=== PATIENT | male | born 1950 | race African-American/Black ===

== ENCOUNTER 2018-02-23 05:01 | Inpatient (IN) | payer MEDICARE ==
[~2018-02-23] VITALS: Ht 175.3 cm; Wt 87.7 kg
[2018-02-23] VITALS (42 sets, daily range): BP systolic 140–182; BP diastolic 64–110
[2018-02-23 06:07] LABS: BASOPHILS % 1.1 % (0.0-2.0); EOSINOPHILS % 0.1 % (0.0-5.0); HEMOGLOBIN. 14.3 g/dL (14.0-18.0); LYMPHOCYTES % 8.8 % (20.0-50.0); MEAN CORPUSCULAR HEMOGLOBIN 28.6 pg (28.0-32.0); MEAN CORPUSCULAR VOLUME 87.8 fL (80.0-94.0); MEAN PLATELET VOLUME 8.8 fl (7.4-10.4); MONOCYTES % 2.5 % (2.0-8.0); NEUTROPHILS % 87.5 % (40.0-76.0); PLATELET 173 x1000/uL (130-400); RED BLOOD CELL COUNT 5.01 mill/uL (4.7-6.1); RED CELL DISTRIBUTION WIDTH 15.2 % (11.6-14.6)
[2018-02-23 06:10] LABS: CHLORIDE 108 mEq/L (98-107); PROTHROMBIN TIME 10.7 sec (9.4-11.6)
[2018-02-23 06:14] LABS: ETHANOL BLOOD < 10 mg/dL
[2018-02-23 06:59] LABS: CLARITY URINE CLEAR (CLEAR); COLOR URINE YELLOW (YELLOW); KETONES URINE NEGATIVE (NEGATIVE); LEUKOCYTE ESTERASE URINE NEGATIVE (NEGATIVE); NITRITE URINE NEGATIVE (NEGATIVE); OCCULT BLOOD URINE NEGATIVE (NEGATIVE); PH URINE 5.5 (4.5-8.0); PROTEIN URINE NEGATIVE (NEGATIVE); UROBILINOGEN URINE 0.2 E.U./dL (0.2-1.0)
[2018-02-23] MEDS ORDERED: ETOMIDATE 2MG/ML 10ML VIAL IV ONE (07:00)
[2018-02-23] MEDS ORDERED: SUCCINYLCHOLINE CHLORIDE 200MG/10ML VIAL IV ONE (07:00)
[2018-02-23] MEDS ORDERED: ONDANSETRON HCL 4MG/2ML VIAL IV ONE (07:00)
[2018-02-23] MEDS ORDERED: LORAZEPAM 2MG/ML CPJ IV ONE (07:15)
[2018-02-23] MEDS ORDERED: PROPOFOL 10MG/ML 100ML 100 ML IV SCH (07:15)
[2018-02-23 07:33] LABS: *COCAINE SCREEN URINE NEGATIVE (NEGATIVE)
[2018-02-23 07:35] LABS: *AMPHETAMINES SCREEN URINE NEGATIVE (NEGATIVE); CANNABINOID URINE SCREEN NEGATIVE (NEGATIVE); PHENCYCLIDINE URINE SCREEN NEGATIVE (NEGATIVE)
[2018-02-23 07:36] LABS: *BARBITURATES SCREEN URINE NEGATIVE (NEGATIVE); *BENZODIAZEPINES SCREEN URINE NEGATIVE (NEGATIVE); METHADONE URINE SCREEN NEGATIVE (NEGATIVE); OPIATES URINE SCREEN NEGATIVE (NEGATIVE)
[2018-02-23] MEDS ORDERED: PROPOFOL 10MG/ML 100ML 100 ML IV PRN (12:15)
[2018-02-23 13:03] LABS: BG CARBOXYHEMOGLOBIN 1.3 % (0.5-1.5); BG DEOXYHEMOGLOBIN 1.4 % (0.0-5.0); BG FRACTION INSPIRED OXYGEN 40; BG HCO3 ACT 22.9 mmol/L (22.0-26.0); BG METHEMOGLOBIN 0.1 % (0.0-1.5); BG OXYHEMOGLOBIN 97.2 % (94.0-97.0); BG PCO2 39.5 mmHg (35.0-45.0); BG PH 7.381 (7.350-7.450); BG PO2 130.5 mmHg (75.0-100.0); BG SAMPLE SITE RIGHT BRACHIAL; BG TIDAL VOLUME(mL) 500 mL; BG TOTAL HEMOGLOBIN 14.4 g/dL (12.0-18.0); BG VENT MODE VENT - A/C; BG VENT RATE 12 set
[2018-02-23] MEDS: LEVETIRACETAM 500MG PREMIX 100 ML IV SCH (14:25)
[2018-02-23] MEDS ORDERED: SODIUM CHLORIDE 0.9% 1,000 ML IV SCH (14:30)
[2018-02-23] MEDS ORDERED: NOREPINEPHRINE 16 MG in DEXT 5% WATER 484 ML IV PRN (14:30)
[2018-02-23] MEDS ORDERED: VANCOMYCIN 1 G PREMIX 200 ML IV SCH (14:30)
[2018-02-23] MEDS: PIPERACILLIN/TAZ 3.375G PREMIX 50 ML IV SCH ×2 (15:50→21:37)
[2018-02-23] MEDS: FOLIC ACID 1 MG, THIAMINE HCL 100 MG, MVI, ADULT NO.1 10 ML in DEXT 5%/0.45% NACL 1000M... IV SCH ×4 (15:50)
[2018-02-23 15:55] LABS: AMMONIA 51 uMol/L (<32)
[2018-02-23] MEDS: VANCOMYCIN 1 G PREMIX 200 ML IV SCH (16:57)
[2018-02-23] MEDS: PROPOFOL 10MG/ML 100ML 100 ML IV PRN (18:40)
[2018-02-24] VITALS (53 sets, daily range): BP systolic 146–192; BP diastolic 66–129
[2018-02-24] MEDS: PROPOFOL 10MG/ML 100ML 100 ML IV PRN ×2 (01:38→09:13)
[2018-02-24] MEDS: LEVETIRACETAM 500MG PREMIX 100 ML IV SCH ×2 (01:40→13:43)
[2018-02-24] MEDS ORDERED: SODIUM CHLORIDE 0.9% 1,000 ML IV SCH ×2 (02:05→02:16)
[2018-02-24] MEDS: VANCOMYCIN 1 G PREMIX 200 ML IV SCH ×2 (02:37→16:17)
[2018-02-24] MEDS: SODIUM CHLORIDE 0.9% 1,000 ML IV SCH (02:38)
[2018-02-24] MEDS: PIPERACILLIN/TAZ 3.375G PREMIX 50 ML IV SCH ×3 (05:00→22:12)
[2018-02-24 08:36] LABS: BG BASE EXCESS 0.8 mmol/L (-2.0-2.0); BG CARBOXYHEMOGLOBIN 0.9 % (0.5-1.5); BG DEOXYHEMOGLOBIN 1.6 % (0.0-5.0); BG FRACTION INSPIRED OXYGEN 40; BG HCO3 ACT 25.1 mmol/L (22.0-26.0); BG METHEMOGLOBIN 0.3 % (0.0-1.5); BG OXYGEN SATURATION 98.4 % (92.0-98.5); BG OXYHEMOGLOBIN 97.2 % (94.0-97.0); BG PCO2 39.3 mmHg (35.0-45.0); BG PH 7.423 (7.350-7.450); BG PO2 114.4 mmHg (75.0-100.0); BG SAMPLE SITE RIGHT RADIAL; BG TIDAL VOLUME(mL) 500 mL; BG TOTAL HEMOGLOBIN 14.3 g/dL (12.0-18.0); BG VENT MODE VENT - A/C; BG VENT RATE 12 set
[2018-02-24] MEDS: PANTOPRAZOLE SODIUM 40 MG/VIAL IV SCH (09:12)
[2018-02-24] MEDS: ASPIRIN 325MG TABLET PO SCH (09:18)
[2018-02-24 12:31] LABS: BASOPHILS % 0.7 % (0.0-2.0); EOSINOPHILS % 0.3 % (0.0-5.0); HEMATOCRIT. 41.2 % (42.0-52.0); HEMOGLOBIN. 13.4 g/dL (14.0-18.0); MEAN CORPUSCULAR HEMOGLOBIN 28.4 pg (28.0-32.0); MEAN CORPUSCULAR VOLUME 86.8 fL (80.0-94.0); MEAN PLATELET VOLUME 8.8 fl (7.4-10.4); MONOCYTES % 7.6 % (2.0-8.0); NEUTROPHILS % 74.4 % (40.0-76.0); PLATELET 166 x1000/uL (130-400); RED BLOOD CELL COUNT 4.74 mill/uL (4.7-6.1); RED CELL DISTRIBUTION WIDTH 15.2 % (11.6-14.6)
[2018-02-24 12:43] LABS: CHLORIDE 110 mEq/L (98-107)
[2018-02-24] MEDS: FOLIC ACID 1 MG, THIAMINE HCL 100 MG, MVI, ADULT NO.1 10 ML in DEXT 5%/0.45% NACL 1000M... IV SCH ×4 (16:16)
[2018-02-25] VITALS (40 sets, daily range): BP systolic 132–192; BP diastolic 74–99
[2018-02-25] MEDS: VANCOMYCIN 1 G PREMIX 200 ML IV SCH ×2 (01:35→15:56)
[2018-02-25] MEDS: LEVETIRACETAM 500MG PREMIX 100 ML IV SCH ×2 (02:43→15:55)
[2018-02-25] MEDS: PIPERACILLIN/TAZ 3.375G PREMIX 50 ML IV SCH ×3 (05:36→21:41)
[2018-02-25] MEDS: SODIUM CHLORIDE 0.9% 1,000 ML IV SCH ×2 (05:37→21:06)
[2018-02-25 05:41] LABS: BASOPHILS % 0.2 % (0.0-2.0); EOSINOPHILS % 0.4 % (0.0-5.0); HEMATOCRIT 39.6 % (42.0-52.0); HEMATOCRIT. 39.6 % (42.0-52.0); HEMOGLOBIN 13.2 g/dL (14.0-18.0); HEMOGLOBIN. 13.2 g/dL (14.0-18.0); LYMPHOCYTES % 18.5 % (20.0-50.0); MEAN CORPUSCULAR HEMOGLOBIN 29.1 pg (28.0-32.0); MEAN CORPUSCULAR VOLUME 87.3 fL (80.0-94.0); MEAN PLATELET VOLUME 8.9 fl (7.4-10.4); MONOCYTES % 9.3 % (2.0-8.0); NEUTROPHILS % 71.6 % (40.0-76.0); PLATELET 165 x1000/uL (130-400); RED BLOOD CELL COUNT 4.54 mill/uL (4.7-6.1); RED CELL DISTRIBUTION WIDTH 14.9 % (11.6-14.6)
[2018-02-25 06:50] LABS: CHLORIDE 110 mEq/L (98-107)
[2018-02-25] MEDS: PANTOPRAZOLE SODIUM 40 MG/VIAL IV SCH (09:39)
[2018-02-25] MEDS: ASPIRIN 325MG TABLET PO SCH (09:39)
[2018-02-25 12:46] LABS: BG BASE EXCESS 0.8 mmol/L (-2.0-2.0); BG CARBOXYHEMOGLOBIN 0.7 % (0.5-1.5); BG DEOXYHEMOGLOBIN 1.3 % (0.0-5.0); BG FRACTION INSPIRED OXYGEN 40; BG HCO3 ACT 24.3 mmol/L (22.0-26.0); BG METHEMOGLOBIN 0.2 % (0.0-1.5); BG OXYGEN SATURATION 98.7 % (92.0-98.5); BG OXYHEMOGLOBIN 97.8 % (94.0-97.0); BG PCO2 35.2 mmHg (35.0-45.0); BG PH 7.457 (7.350-7.450); BG PRESSURE SUPPORT 12; BG SAMPLE SITE RIGHT RADIAL; BG TIDAL VOLUME(mL) 500 mL; BG TOTAL HEMOGLOBIN 13.5 g/dL (12.0-18.0); BG VENT MODE VENT - SIMV; BG VENT RATE 8 set
[2018-02-25] MEDS: FOLIC ACID 1 MG, THIAMINE HCL 100 MG, MVI, ADULT NO.1 10 ML in DEXT 5%/0.45% NACL 1000M... IV SCH ×4 (15:56)
[2018-02-25] MEDS: AMLODIPINE 10MG TABLET PO SCH (16:00)
[2018-02-25] MEDS: LORAZEPAM 2MG/ML CPJ IV PRN (21:06)
[2018-02-25] MEDS: HYDRALAZINE HCL 25MG TABLET PO SCH (21:41)
[2018-02-26] VITALS (42 sets, daily range): BP systolic 123–183; BP diastolic 64–92
[2018-02-26] MEDS: LEVETIRACETAM 500MG PREMIX 100 ML IV SCH ×2 (02:39→14:06)
[2018-02-26] MEDS: VANCOMYCIN 1 G PREMIX 200 ML IV SCH (03:22)
[2018-02-26] MEDS: LORAZEPAM 2MG/ML CPJ IV PRN (04:06)
[2018-02-26 05:42] LABS: HEMATOCRIT 39.2 % (42.0-52.0); HEMOGLOBIN 12.9 g/dL (14.0-18.0); MEAN CORPUSCULAR HEMOGLOBIN 28.6 pg (28.0-32.0); MEAN CORPUSCULAR VOLUME 86.6 fL (80.0-94.0); PLATELET 157 x1000/uL (130-400); RED BLOOD CELL COUNT 4.53 mill/uL (4.7-6.1); RED CELL DISTRIBUTION WIDTH 14.8 % (11.6-14.6)
[2018-02-26 05:55] LABS: CHLORIDE 111 mEq/L (98-107)
[2018-02-26] MEDS: PIPERACILLIN/TAZ 3.375G PREMIX 50 ML IV SCH ×3 (05:55→21:25)
[2018-02-26] MEDS: HYDRALAZINE HCL 25MG TABLET PO SCH ×3 (05:55→21:25)
[2018-02-26] MEDS ORDERED: POTASSIUM CHLORIDE 20MEQ TABLET SR PO SCH (07:30)
[2018-02-26] MEDS: SODIUM CHLORIDE 0.9% 1,000 ML IV SCH (07:52)
[2018-02-26] MEDS: PANTOPRAZOLE SODIUM 40 MG/VIAL IV SCH (09:07)
[2018-02-26] MEDS: ASPIRIN 325MG TABLET PO SCH (09:07)
[2018-02-26] MEDS: AMLODIPINE 10MG TABLET PO SCH (09:08)
[2018-02-26 09:59] LABS: BG BASE EXCESS -0.6 mmol/L (-2.0-2.0); BG CARBOXYHEMOGLOBIN 0.6 % (0.5-1.5); BG DEOXYHEMOGLOBIN 1.8 % (0.0-5.0); BG FRACTION INSPIRED OXYGEN 40; BG HCO3 ACT 22.4 mmol/L (22.0-26.0); BG METHEMOGLOBIN 0.3 % (0.0-1.5); BG OXYGEN SATURATION 98.2 % (92.0-98.5); BG OXYHEMOGLOBIN 97.3 % (94.0-97.0); BG PCO2 31.9 mmHg (35.0-45.0); BG PH 7.464 (7.350-7.450); BG PRESSURE SUPPORT 12; BG SAMPLE SITE RIGHT BRACHIAL; BG TIDAL VOLUME(mL) 500 mL; BG TOTAL HEMOGLOBIN 13.3 g/dL (12.0-18.0); BG VENT MODE VENT - SIMV; BG VENT RATE 8 set
[2018-02-26] MEDS: FOLIC ACID 1 MG, THIAMINE HCL 100 MG, MVI, ADULT NO.1 10 ML in DEXT 5%/0.45% NACL 1000M... IV SCH ×4 (20:14)
[2018-02-27] VITALS (48 sets, daily range): BP systolic 122–180; BP diastolic 65–106
[2018-02-27] MEDS: LEVETIRACETAM 500MG PREMIX 100 ML IV SCH ×2 (01:06→14:54)
[2018-02-27] MEDS: HYDRALAZINE HCL 25MG TABLET PO SCH ×3 (05:27→21:44)
[2018-02-27] MEDS: PIPERACILLIN/TAZ 3.375G PREMIX 50 ML IV SCH ×3 (05:27→21:45)
[2018-02-27] MEDS: SODIUM CHLORIDE 0.9% 1,000 ML IV SCH (07:40)
[2018-02-27] MEDS: ASPIRIN 325MG TABLET PO SCH (08:44)
[2018-02-27] MEDS: PANTOPRAZOLE SODIUM 40 MG/VIAL IV SCH (08:45)
[2018-02-27] MEDS: AMLODIPINE 10MG TABLET PO SCH (08:45)
[2018-02-27 10:31] LABS: BASOPHILS % 1.1 % (0.0-2.0); EOSINOPHILS % 0.8 % (0.0-5.0); HEMOGLOBIN. 12.8 g/dL (14.0-18.0); LYMPHOCYTES % 14.6 % (20.0-50.0); MEAN CORPUSCULAR HEMOGLOBIN 28.4 pg (28.0-32.0); MEAN CORPUSCULAR VOLUME 86.6 fL (80.0-94.0); MEAN PLATELET VOLUME 8.4 fl (7.4-10.4); MONOCYTES % 8.7 % (2.0-8.0); NEUTROPHILS % 74.8 % (40.0-76.0); PLATELET 162 x1000/uL (130-400); RED BLOOD CELL COUNT 4.51 mill/uL (4.7-6.1); RED CELL DISTRIBUTION WIDTH 15.1 % (11.6-14.6)
[2018-02-27 11:15] LABS: BG BASE EXCESS -0.7 mmol/L (-2.0-2.0); BG CARBOXYHEMOGLOBIN 0.4 % (0.5-1.5); BG DEOXYHEMOGLOBIN 1.4 % (0.0-5.0); BG FRACTION INSPIRED OXYGEN 50; BG HCO3 ACT 22.8 mmol/L (22.0-26.0); BG METHEMOGLOBIN 0.3 % (0.0-1.5); BG OXYHEMOGLOBIN 97.9 % (94.0-97.0); BG PCO2 34.1 mmHg (35.0-45.0); BG PH 7.443 (7.350-7.450); BG PO2 131.2 mmHg (75.0-100.0); BG PRESSURE SUPPORT 8; BG SAMPLE SITE RIGHT RADIAL; BG TOTAL HEMOGLOBIN 13.8 g/dL (12.0-18.0); BG VENT MODE VENT - CPAP
[2018-02-27 11:34] LABS: CHLORIDE 113 mEq/L (98-107)
[2018-02-27 11:39] LABS: PHOSPHORUS 3.7 mg/dL (2.5-4.9)
[2018-02-27] MEDS ORDERED: RACEPINEPHRINE 2.25% 0.5ML NEB VIAL HHN PRN (12:15)
[2018-02-27] MEDS: FOLIC ACID 1 MG, THIAMINE HCL 100 MG, MVI, ADULT NO.1 10 ML in DEXT 5%/0.45% NACL 1000M... IV SCH ×4 (14:54)
[2018-02-27] MEDS: IPRATROPIUM/ALBUTEROL 0.5-3(2.5)MG/3ML NEB HHN PRN (15:57)
[2018-02-27] MEDS ORDERED: BISACODYL 10MG SUPP PR PRN ×2 (16:15→19:00)
[2018-02-27] MEDS: DOCUSATE SODIUM SUGAR FREE 100MG/10ML UDC NG SCH (16:28)
[2018-02-27] MEDS ORDERED: BISACODYL 5MG TABLET PO PRN (19:00)
[2018-02-27] MEDS ORDERED: MAGNESIUM HYDROXIDE 400MG/5ML 30ML UDC PO PRN (19:00)
[2018-02-27] MEDS: IPRATROPIUM/ALBUTEROL 0.5-3(2.5)MG/3ML NEB HHN SCH (20:47)
[2018-02-28] VITALS (34 sets, daily range): BP systolic 104–175; BP diastolic 58–84
[2018-02-28] MEDS: IPRATROPIUM/ALBUTEROL 0.5-3(2.5)MG/3ML NEB HHN SCH ×4 (01:50→20:45)
[2018-02-28] MEDS: LEVETIRACETAM 500MG PREMIX 100 ML IV SCH ×2 (02:49→13:20)
[2018-02-28] MEDS: PIPERACILLIN/TAZ 3.375G PREMIX 50 ML IV SCH ×3 (05:33→22:07)
[2018-02-28] MEDS: HYDRALAZINE HCL 25MG TABLET PO SCH ×3 (05:33→22:00)
[2018-02-28] MEDS: ASPIRIN 325MG TABLET PO SCH (08:19)
[2018-02-28] MEDS: PANTOPRAZOLE SODIUM 40 MG/VIAL IV SCH (08:19)
[2018-02-28] MEDS: AMLODIPINE 10MG TABLET PO SCH (08:20)
[2018-02-28] MEDS: DOCUSATE SODIUM SUGAR FREE 100MG/10ML UDC NG SCH (08:21)
[2018-02-28 08:34] LABS: BG BASE EXCESS 2.4 mmol/L (-2.0-2.0); BG CARBOXYHEMOGLOBIN 0.6 % (0.5-1.5); BG DEOXYHEMOGLOBIN 2.1 % (0.0-5.0); BG FRACTION INSPIRED OXYGEN 28; BG HCO3 ACT 26.7 mmol/L (22.0-26.0); BG METHEMOGLOBIN 0.2 % (0.0-1.5); BG OXYGEN SATURATION 97.9 % (92.0-98.5); BG OXYHEMOGLOBIN 97.1 % (94.0-97.0); BG PCO2 40.5 mmHg (35.0-45.0); BG PH 7.437 (7.350-7.450); BG PO2 105.1 mmHg (75.0-100.0); BG SAMPLE SITE RIGHT BRACHIAL; BG TOTAL HEMOGLOBIN 13.2 g/dL (12.0-18.0); BG VENT MODE NASAL CANNULA
[2018-02-28 09:41] LABS: CHLORIDE 115 mEq/L (98-107)
[2018-02-28 09:46] LABS: BASOPHILS % 0.4 % (0.0-2.0); EOSINOPHILS % 0.5 % (0.0-5.0); HEMATOCRIT. 39.4 % (42.0-52.0); HEMOGLOBIN. 12.8 g/dL (14.0-18.0); LYMPHOCYTES % 13.5 % (20.0-50.0); MEAN CORPUSCULAR HEMOGLOBIN 28.2 pg (28.0-32.0); MEAN CORPUSCULAR VOLUME 86.9 fL (80.0-94.0); MEAN PLATELET VOLUME 8.8 fl (7.4-10.4); MONOCYTES % 7.8 % (2.0-8.0); NEUTROPHILS % 77.8 % (40.0-76.0); PLATELET 159 x1000/uL (130-400); RED BLOOD CELL COUNT 4.54 mill/uL (4.7-6.1); RED CELL DISTRIBUTION WIDTH 15.3 % (11.6-14.6)
[2018-02-28] MEDS: METHYLPREDNISOLONE SOD SUCC 40 MG/ML VIAL IV SCH ×2 (12:49→17:16)
[2018-02-28] MEDS: BUDESONIDE 0.5MG/2ML NEB HHN SCH ×2 (14:57→20:45)
[2018-03-01] VITALS (24 sets, daily range): BP systolic 124–167; BP diastolic 60–95
[2018-03-01] MEDS: METHYLPREDNISOLONE SOD SUCC 40 MG/ML VIAL IV SCH ×2 (01:38→17:36)
[2018-03-01] MEDS: LEVETIRACETAM 500MG PREMIX 100 ML IV SCH ×2 (01:38→14:12)
[2018-03-01] MEDS: IPRATROPIUM/ALBUTEROL 0.5-3(2.5)MG/3ML NEB HHN SCH ×4 (01:52→20:20)
[2018-03-01] MEDS: HYDRALAZINE HCL 25MG TABLET PO SCH ×3 (06:01→21:55)
[2018-03-01] MEDS: PIPERACILLIN/TAZ 3.375G PREMIX 50 ML IV SCH ×3 (06:01→21:55)
[2018-03-01] MEDS: BUDESONIDE 0.5MG/2ML NEB HHN SCH ×2 (08:04→20:20)
[2018-03-01] MEDS: DOCUSATE SODIUM SUGAR FREE 100MG/10ML UDC NG SCH (08:08)
[2018-03-01] MEDS: PANTOPRAZOLE SODIUM 40 MG/VIAL IV SCH (08:38)
[2018-03-01] MEDS: ASPIRIN 325MG TABLET PO SCH (08:39)
[2018-03-01] MEDS: AMLODIPINE 10MG TABLET PO SCH (08:39)
[2018-03-01 09:09] LABS: HEMATOCRIT. 38.1 % (42.0-52.0); HEMOGLOBIN. 12.2 g/dL (14.0-18.0); MEAN CORPUSCULAR VOLUME 87.3 fL (80.0-94.0); MEAN PLATELET VOLUME 8.9 fl (7.4-10.4); PLATELET 194 x1000/uL (130-400); RED BLOOD CELL COUNT 4.37 mill/uL (4.7-6.1)
[2018-03-01 09:29] LABS: CHLORIDE 116 mEq/L (98-107)
[2018-03-01] MEDS ORDERED: METHYLPREDNISOLONE SOD SUCC 40 MG/ML VIAL IV SCH (09:30)
[2018-03-01 09:35] LABS: PHOSPHORUS 2.9 mg/dL (2.5-4.9)
[2018-03-01 09:59] LABS: PLATELET ESTIMATE NORMAL
[2018-03-02] VITALS: BP 117/62
[2018-03-02] MEDS: IPRATROPIUM/ALBUTEROL 0.5-3(2.5)MG/3ML NEB HHN SCH ×4 (01:55→21:52)
[2018-03-02] MEDS: LEVETIRACETAM 500MG PREMIX 100 ML IV SCH ×2 (02:30→14:55)
[2018-03-02 04:00] VITALS: BP 123/58
[2018-03-02] MEDS: HYDRALAZINE HCL 25MG TABLET PO SCH ×3 (05:18→22:55)
[2018-03-02] MEDS: PIPERACILLIN/TAZ 3.375G PREMIX 50 ML IV SCH ×2 (05:18→15:39)
[2018-03-02 08:06] VITALS: BP 134/62
[2018-03-02] MEDS: ASPIRIN 325MG TABLET PO SCH (08:32)
[2018-03-02] MEDS: METHYLPREDNISOLONE SOD SUCC 40 MG/ML VIAL IV SCH ×2 (08:32→17:33)
[2018-03-02] MEDS: DOCUSATE SODIUM SUGAR FREE 100MG/10ML UDC NG SCH (08:32)
[2018-03-02] MEDS: PANTOPRAZOLE SODIUM 40 MG/VIAL IV SCH (08:33)
[2018-03-02] MEDS: AMLODIPINE 10MG TABLET PO SCH (08:33)
[2018-03-02] MEDS: BUDESONIDE 0.5MG/2ML NEB HHN SCH ×2 (09:15→21:52)
[2018-03-02 12:50] VITALS: BP 141/63
[2018-03-02] MEDS ORDERED: MIDAZOLAM HCL 5 MG/5 ML VIAL IV ONE (13:26)
[2018-03-02] MEDS ORDERED: MIDAZOLAM HCL 5 MG/5 ML VIAL ONE (13:31)
[2018-03-02] MEDS ORDERED: FENTANYL CITRATE/PF 50MCG/ML 2ML VIAL ONE (13:31)
[2018-03-02 16:42] VITALS: BP 155/73
[2018-03-02] MEDS: IPRATROPIUM/ALBUTEROL 0.5-3(2.5)MG/3ML NEB HHN PRN (16:59)
[2018-03-02 20:00] VITALS: BP 150/74
[2018-03-03] VITALS: BP 134/68
[2018-03-03] MEDS: LEVETIRACETAM 500MG PREMIX 100 ML IV SCH (02:34)
[2018-03-03] MEDS: IPRATROPIUM/ALBUTEROL 0.5-3(2.5)MG/3ML NEB HHN SCH ×3 (02:48→20:34)
[2018-03-03 04:00] VITALS: BP 134/65
[2018-03-03] MEDS: HYDRALAZINE HCL 25MG TABLET PO SCH ×3 (07:06→21:10)
[2018-03-03 08:23] VITALS: BP 107/74
[2018-03-03] MEDS: BUDESONIDE 0.5MG/2ML NEB HHN SCH (08:39)
[2018-03-03] MEDS: AMLODIPINE 10MG TABLET PO SCH (09:00)
[2018-03-03] MEDS: ASPIRIN 325MG TABLET PO SCH (09:00)
[2018-03-03] MEDS: DOCUSATE SODIUM SUGAR FREE 100MG/10ML UDC NG SCH (09:42)
[2018-03-03] MEDS: PANTOPRAZOLE SODIUM 40 MG/VIAL IV SCH (09:43)
[2018-03-03] MEDS: METHYLPREDNISOLONE SOD SUCC 40 MG/ML VIAL IV SCH ×2 (09:43→17:13)
[2018-03-03 11:30] VITALS: BP 147/69
[2018-03-03 16:00] VITALS: BP 128/51
[2018-03-03 20:00] VITALS: BP 154/65
[2018-03-04] VITALS: BP 150/68
[2018-03-04] MEDS: IPRATROPIUM/ALBUTEROL 0.5-3(2.5)MG/3ML NEB HHN SCH ×3 (00:28→20:26)
[2018-03-04 04:00] VITALS: BP 162/83
[2018-03-04] MEDS: HYDRALAZINE HCL 25MG TABLET PO SCH ×3 (05:08→21:07)
[2018-03-04 08:00] VITALS: BP 135/82
[2018-03-04] MEDS: ASPIRIN 325MG TABLET PO SCH (09:59)
[2018-03-04] MEDS: METHYLPREDNISOLONE SOD SUCC 40 MG/ML VIAL IV SCH ×2 (09:59→16:33)
[2018-03-04] MEDS: DOCUSATE SODIUM SUGAR FREE 100MG/10ML UDC NG SCH (09:59)
[2018-03-04] MEDS: AMLODIPINE 10MG TABLET PO SCH (09:59)
[2018-03-04 12:00] VITALS: BP 158/77
[2018-03-04 16:00] VITALS: BP 132/66
[2018-03-04] MEDS ORDERED: HYDR-4134 PO (19:26)
[2018-03-04] MEDS ORDERED: ASPI-986 PO (19:26)
[2018-03-04] MEDS ORDERED: AMLO10TA80 PO (19:26)
[2018-03-04] MEDS ORDERED: IPRA3AMP9 HHN (19:26)
[2018-03-04 20:00] VITALS: BP 148/70
[2018-03-04 20:25] LABS: BASOPHILS % 0.3 % (0.0-2.0); HEMATOCRIT. 39.9 % (42.0-52.0); HEMOGLOBIN. 12.9 g/dL (14.0-18.0); LYMPHOCYTES % 7.7 % (20.0-50.0); MEAN CORPUSCULAR HEMOGLOBIN 28.3 pg (28.0-32.0); MEAN CORPUSCULAR VOLUME 87.5 fL (80.0-94.0); MEAN PLATELET VOLUME 9.2 fl (7.4-10.4); MONOCYTES % 2.5 % (2.0-8.0); NEUTROPHILS % 89.5 % (40.0-76.0); PLATELET 252 x1000/uL (130-400); RED BLOOD CELL COUNT 4.56 mill/uL (4.7-6.1); RED CELL DISTRIBUTION WIDTH 14.7 % (11.6-14.6)
[2018-03-04 20:29] LABS: CHLORIDE 113 mEq/L (98-107)
[2018-03-05] VITALS: BP 159/68
[2018-03-05] MEDS: IPRATROPIUM/ALBUTEROL 0.5-3(2.5)MG/3ML NEB HHN SCH ×4 (02:13→19:59)
[2018-03-05 04:00] VITALS: BP 144/69
[2018-03-05] MEDS: HYDRALAZINE HCL 25MG TABLET PO SCH ×2 (05:15→14:29)
[2018-03-05 06:51] LABS: BASOPHILS % 0.1 % (0.0-2.0); EOSINOPHILS % 0.1 % (0.0-5.0); HEMATOCRIT. 38.6 % (42.0-52.0); HEMOGLOBIN. 12.9 g/dL (14.0-18.0); LYMPHOCYTES % 16.4 % (20.0-50.0); MONOCYTES % 8.9 % (2.0-8.0); NEUTROPHILS % 74.5 % (40.0-76.0); PLATELET 247 x1000/uL (130-400); RED BLOOD CELL COUNT 4.44 mill/uL (4.7-6.1); RED CELL DISTRIBUTION WIDTH 14.6 % (11.6-14.6)
[2018-03-05 07:18] LABS: CHLORIDE 112 mEq/L (98-107)
[2018-03-05 08:00] VITALS: BP 148/72
[2018-03-05] MEDS: ASPIRIN 325MG TABLET PO SCH (08:45)
[2018-03-05] MEDS: METHYLPREDNISOLONE SOD SUCC 40 MG/ML VIAL IV SCH (08:45)
[2018-03-05] MEDS: DOCUSATE SODIUM SUGAR FREE 100MG/10ML UDC NG SCH (08:46)
[2018-03-05] MEDS: AMLODIPINE 10MG TABLET PO SCH (08:49)
[2018-03-05 12:00] VITALS: BP 145/68
[2018-03-05] MEDS ORDERED: ATOR10TA PO (12:38)
[2018-03-05] MEDS ORDERED: PREDNISONE 20MG TABLET PO SCH (12:45)
[2018-03-05 16:00] VITALS: BP 158/72
[2018-03-05] MEDS ORDERED: ATORVASTATIN CALCIUM 10MG TABLET PO SCH ×2 (21:00)
== END 2018-03-05 21:44 | DRG 207 ==
LOC: ER 05:01 → CVICU 08:47 → EDBEDREQ 08:51 → EDBEDREQTM 08:51 → ENRESERV 09:56 → 5WST 03-01 11:46
PROVIDERS: ADMIT Family Medicine; ATTEND Family Medicine
PROC: 5A1955Z Respiratory Ventilation, Greater than 96 Consecutive Hours (ICD-10-PCS; 2018-02-23)
PROC: 0BH17EZ Insertion of Endotracheal Airway into Trachea, Via Natural or Artificial Opening (ICD-10-PCS; 2018-02-23)
PROC: 0DH63UZ Insertion of Feeding Device into Stomach, Percutaneous Approach (ICD-10-PCS; principal; 2018-03-02 10:00)
DX: J96.00 Acute respiratory failure, unspecified whether with hypoxia or hypercapnia (principal); I63.9 Cerebral infarction, unspecified; E43 Unspecified severe protein-calorie malnutrition; G93.1 Anoxic brain damage, not elsewhere classified; R13.12 Dysphagia, oropharyngeal phase; G81.94 Hemiplegia, unspecified affecting left nondominant side; E87.0 Hyperosmolality and hypernatremia; R47.01 Aphasia; D64.9 Anemia, unspecified; E11.9 Type 2 diabetes mellitus without complications; D72.825 Bandemia; F10.10 Alcohol abuse, uncomplicated; Y90.9 Presence of alcohol in blood, level not specified; F17.210 Nicotine dependence, cigarettes, uncomplicated; I10 Essential (primary) hypertension; K25.9 Gastric ulcer, unspecified as acute or chronic, without hemorrhage or perforation; K29.70 Gastritis, unspecified, without bleeding; K44.9 Diaphragmatic hernia without obstruction or gangrene; K59.00 Constipation, unspecified; Z91.14 Patient's other noncompliance with medication regimen; Z68.28 Body mass index [BMI] 28.0-28.9, adult; Z79.899 Other long term (current) drug therapy
CPT/HCPCS: 31500; 36415; 36600; 70450; 70544; 70551; 70553; 71045; 80048; 80053; 80061; 80202; 80305; 81003; 82140; 82375; 82805; 82962; 83036; 83605; 83690; 83735; 84100; 84443; 84478; 84484; 85025; 85027; 85610; 87040; 87070; 92523; 92610; 93005; 93306; 93880; 93970; 94002; 94003; 94640; 96374; 96375; 97110; 97112; 97162; 97166; 97530; 99291; C9113; G0482; J0330; J1953; J2060; J2250; J2405; J2543; J2704; J2920; J3010; J3370; J3411; J3490; J7030; J7050; J7512; J7620; J7626

== ENCOUNTER 2018-03-18 09:11 | Inpatient (IN) | payer MEDICARE ==
[~2018-03-18] VITALS: Ht 175.3 cm; Wt 80.7 kg
[2018-03-18] VITALS (35 sets, daily range): BP systolic 95–132; BP diastolic 67–84
[~2018-03-18 09:11] MED LIST: AMLO10TA80 PO; ASPI-986 PO; ATOR10TA PO; BISA-81 GT; DOCU-138 GT; HYDR-4134 PO; IPRA3AMP9 HHN; KEPP500 PO; LEVO500T2 PO; TAMS-11 PO
[2018-03-18] MEDS ORDERED: ETOMIDATE 2MG/ML 10ML VIAL IV ONE ×3 (09:30→16:01)
[2018-03-18] MEDS ORDERED: PIPERACILLIN/TAZ 3.375G PREMIX 50 ML IV ONE (09:30)
[2018-03-18] MEDS ORDERED: VANCOMYCIN 1 G PREMIX 200 ML IV ONE (09:30)
[2018-03-18] MEDS ORDERED: VECURONIUM BROMIDE 10 MG/VIAL IV ONE ×3 (09:30→16:01)
[2018-03-18] MEDS ORDERED: PROPOFOL 10MG/ML 100ML 100 ML IV ONE (09:30)
[2018-03-18] MEDS ORDERED: SODIUM CHLORIDE 0.9% 1000ML BAG (SEPSIS BOLUS) IV ONE (09:30)
[2018-03-18] MEDS ORDERED: ACETAMINOPHEN 650MG SUPP PR ONE (09:30)
[2018-03-18 09:51] LABS: BG CARBOXYHEMOGLOBIN 0.4 % (0.5-1.5); BG DEOXYHEMOGLOBIN 8.9 % (0.0-5.0); BG HCO3 ACT 26.7 mmol/L (22.0-26.0); BG METHEMOGLOBIN 0.3 % (0.0-1.5); BG OXYHEMOGLOBIN 90.4 % (94.0-97.0); BG PCO2 51.9 mmHg (35.0-45.0); BG PO2 67.3 mmHg (75.0-100.0); BG SAMPLE SITE RIGHT RADIAL; BG TIDAL VOLUME(mL) 500 mL; BG TOTAL HEMOGLOBIN 13.9 g/dL (12.0-18.0); BG VENT MODE VENT - A/C; BG VENT RATE 12 set
[2018-03-18 10:22] LABS: BASOPHILS % 0.3 % (0.0-2.0); EOSINOPHILS % 0.2 % (0.0-5.0); HEMATOCRIT. 40.9 % (42.0-52.0); HEMOGLOBIN. 13.3 g/dL (14.0-18.0); LYMPHOCYTES % 12.9 % (20.0-50.0); MEAN CORPUSCULAR HEMOGLOBIN 28.2 pg (28.0-32.0); MEAN CORPUSCULAR VOLUME 87.1 fL (80.0-94.0); MEAN PLATELET VOLUME 8.7 fl (7.4-10.4); MONOCYTES % 8.6 % (2.0-8.0); PLATELET 289 x1000/uL (130-400); RED CELL DISTRIBUTION WIDTH 15.5 % (11.6-14.6)
[2018-03-18 10:26] LABS: INR 1.3
[2018-03-18 10:32] LABS: CHLORIDE 124 mEq/L (98-107)
[2018-03-18 10:37] LABS: CLARITY URINE CLOUDY (CLEAR); COLOR URINE YELLOW (YELLOW); KETONES URINE NEGATIVE (NEGATIVE); LEUKOCYTE ESTERASE URINE 1+ (NEGATIVE); NITRITE URINE NEGATIVE (NEGATIVE); OCCULT BLOOD URINE 2+ (NEGATIVE); PROTEIN URINE 1+ (NEGATIVE); SPECIFIC GRAVITY URINE 1.019 (1.005-1.030); UROBILINOGEN URINE 0.2 E.U./dL (0.2-1.0)
[2018-03-18 11:31] LABS: CREATINE KINASE 1259 IU/L (39-308)
[2018-03-18 11:43] LABS: D-DIMER > 35.20 mg/L FEU (<0.50)
[2018-03-18] MEDS ORDERED: NORMAL SALINE 0.9% 10 ML SYR ONE (16:01)
[2018-03-18] MEDS ORDERED: ALBUTEROL (0.5%) 2.5MG/0.5ML NEB HHN PRN (16:15)
[2018-03-18] MEDS ORDERED: DEXT 5%/0.45% NACL 500ML 500 ML IV ONE (16:15)
[2018-03-18] MEDS ORDERED: PIPERACILLIN/TAZ 3.375G PREMIX 50 ML IV SCH ×2 (16:15→18:30)
[2018-03-18 16:47] LABS: BASOPHILS % 0.5 % (0.0-2.0); EOSINOPHILS % 0.2 % (0.0-5.0); HEMATOCRIT. 36.1 % (42.0-52.0); HEMOGLOBIN. 11.4 g/dL (14.0-18.0); LYMPHOCYTES % 9.3 % (20.0-50.0); MEAN CORPUSCULAR VOLUME 88.9 fL (80.0-94.0); MEAN PLATELET VOLUME 8.5 fl (7.4-10.4); MONOCYTES % 6.7 % (2.0-8.0); NEUTROPHILS % 83.3 % (40.0-76.0); PLATELET 239 x1000/uL (130-400); RED BLOOD CELL COUNT 4.06 mill/uL (4.7-6.1); RED CELL DISTRIBUTION WIDTH 15.3 % (11.6-14.6)
[2018-03-18] MEDS ORDERED: ONDANSETRON HCL 4MG/2ML VIAL IV PRN (17:00)
[2018-03-18] MEDS ORDERED: NA PHOS,M-B/NA PHOS,DI-BA ENEMA 118ML PR PRN (17:00)
[2018-03-18] MEDS ORDERED: GUAIFENESIN 200MG/10ML SUGAR FREE UDC PO PRN (17:00)
[2018-03-18] MEDS ORDERED: HYDROCODONE/ACETAMINOPHEN 5/325MG TABLET PO PRN (17:00)
[2018-03-18] MEDS ORDERED: ACETAMINOPHEN 650MG SUPP PR PRN (17:00)
[2018-03-18] MEDS ORDERED: IPRATROPIUM/ALBUTEROL 0.5-3(2.5)MG/3ML NEB INH PRN (17:00)
[2018-03-18] MEDS ORDERED: ACETAMINOPHEN 325MG TABLET PO PRN (17:00)
[2018-03-18] MEDS ORDERED: VANCOMYCIN 1 G PREMIX 200 ML IV SCH (17:00)
[2018-03-18] MEDS ORDERED: HYDROCODONE/ACETAMINOPHEN 10/325MG TABLET PO PRN (17:00)
[2018-03-18] MEDS ORDERED: DIPHENHYDRAMINE 50MG/ML VIAL IV PRN (17:00)
[2018-03-18] MEDS ORDERED: DOCUSATE SODIUM 100MG CAPSULE PO PRN (17:00)
[2018-03-18 17:21] LABS: BG CARBOXYHEMOGLOBIN 0.3 % (0.5-1.5); BG DEOXYHEMOGLOBIN 0.8 % (0.0-5.0); BG HCO3 ACT 22.9 mmol/L (22.0-26.0); BG METHEMOGLOBIN 0.1 % (0.0-1.5); BG OXYGEN SATURATION 99.2 % (92.0-98.5); BG OXYHEMOGLOBIN 98.8 % (94.0-97.0); BG PCO2 39.7 mmHg (35.0-45.0); BG PH 7.379 (7.350-7.450); BG PO2 258.6 mmHg (75.0-100.0); BG SAMPLE SITE RIGHT RADIAL; BG TIDAL VOLUME(mL) 500 mL; BG TOTAL HEMOGLOBIN 12.3 g/dL (12.0-18.0); BG VENT MODE VENT - A/C; BG VENT RATE 18 set
[2018-03-18] MEDS: PROPOFOL 10MG/ML 100ML 100 ML IV PRN (18:27)
[2018-03-18] MEDS: PIPERACILLIN/TAZ 3.375G PREMIX 50 ML IV SCH (18:28)
[2018-03-18] MEDS ORDERED: SODIUM POLYSTYRENE SULFONATE 15 G/60 ML BOT PO NR (18:45)
[2018-03-18] MEDS: ENOXAPARIN 40MG/0.4ML SYR SUBCUT SCH (19:56)
[2018-03-18] MEDS ORDERED: VANCOMYCIN 1500MG in DEXTROSE 5% WATER 250ML IV NR (20:30)
[2018-03-18] MEDS: IPRATROPIUM/ALBUTEROL 0.5-3(2.5)MG/3ML NEB INH SCH (20:31)
[2018-03-18] MEDS: SODIUM CHLORIDE 0.9% INJ 3ML FLUSH IVF SCH (22:00)
[2018-03-18 23:53] LABS: CREATINE KINASE MB FRACTION 4.4 ng/mL (0.5-3.6)
[2018-03-19] VITALS (63 sets, daily range): BP systolic 91–159; BP diastolic 60–137
[2018-03-19] MEDS: IPRATROPIUM/ALBUTEROL 0.5-3(2.5)MG/3ML NEB INH SCH ×3 (01:59→14:10)
[2018-03-19] MEDS: PIPERACILLIN/TAZ 3.375G PREMIX 50 ML IV SCH ×3 (02:01→18:32)
[2018-03-19] MEDS: SODIUM CHLORIDE 0.9% INJ 3ML FLUSH IVF SCH ×3 (05:31→21:20)
[2018-03-19 05:37] LABS: BASOPHILS % 0.3 % (0.0-2.0); EOSINOPHILS % 0.9 % (0.0-5.0); HEMATOCRIT. 37.3 % (42.0-52.0); HEMOGLOBIN. 11.8 g/dL (14.0-18.0); LYMPHOCYTES % 9.2 % (20.0-50.0); MEAN CORPUSCULAR HEMOGLOBIN 27.9 pg (28.0-32.0); MEAN CORPUSCULAR VOLUME 88.4 fL (80.0-94.0); MEAN PLATELET VOLUME 8.9 fl (7.4-10.4); MONOCYTES % 6.8 % (2.0-8.0); NEUTROPHILS % 82.8 % (40.0-76.0); PLATELET 233 x1000/uL (130-400); RED BLOOD CELL COUNT 4.22 mill/uL (4.7-6.1)
[2018-03-19 05:55] LABS: CHLORIDE 123 mEq/L (98-107)
[2018-03-19 06:15] LABS: LDL CHOLESTEROL 44 mg/dL (5-100)
[2018-03-19 06:17] LABS: HDL CHOLESTEROL 23 mg/dL (40-59)
[2018-03-19 06:19] LABS: CREATINE KINASE MB FRACTION 3.6 ng/mL (0.5-3.6)
[2018-03-19 06:28] LABS: CREATINE KINASE 1105 IU/L (39-308)
[2018-03-19 08:23] LABS: BG BASE EXCESS -2.7 mmol/L (-2.0-2.0); BG CARBOXYHEMOGLOBIN 0.2 % (0.5-1.5); BG DEOXYHEMOGLOBIN 1.4 % (0.0-5.0); BG FRACTION INSPIRED OXYGEN 50; BG HCO3 ACT 22.3 mmol/L (22.0-26.0); BG METHEMOGLOBIN 0.6 % (0.0-1.5); BG OXYGEN SATURATION 98.6 % (92.0-98.5); BG OXYHEMOGLOBIN 97.8 % (94.0-97.0); BG PCO2 39.5 mmHg (35.0-45.0); BG PH 7.369 (7.350-7.450); BG PO2 173.9 mmHg (75.0-100.0); BG SAMPLE SITE RIGHT RADIAL; BG TIDAL VOLUME(mL) 500 mL; BG TOTAL HEMOGLOBIN 12.1 g/dL (12.0-18.0); BG VENT MODE VENT - A/C; BG VENT RATE 18 set
[2018-03-19] MEDS: DEXTROSE 5% WATER 1,000 ML IV SCH ×2 (10:16→20:49)
[2018-03-19] MEDS: LACTOBACILLUS GG CAPSULE PEG SCH (12:56)
[2018-03-19] MEDS: PROPOFOL 10MG/ML 100ML 100 ML IV PRN (14:03)
[2018-03-19 17:20] LABS: BG CARBOXYHEMOGLOBIN 0.3 % (0.5-1.5); BG DEOXYHEMOGLOBIN 2.5 % (0.0-5.0); BG FRACTION INSPIRED OXYGEN 50; BG HCO3 ACT 18.6 mmol/L (22.0-26.0); BG METHEMOGLOBIN 0.3 % (0.0-1.5); BG OXYGEN SATURATION 97.5 % (92.0-98.5); BG OXYHEMOGLOBIN 96.9 % (94.0-97.0); BG PCO2 25.4 mmHg (35.0-45.0); BG PH 7.482 (7.350-7.450); BG PO2 98.5 mmHg (75.0-100.0); BG PRESSURE SUPPORT 16; BG SAMPLE SITE RIGHT RADIAL; BG TIDAL VOLUME(mL) 500 mL; BG VENT MODE VENT - SIMV; BG VENT RATE 14 set
[2018-03-19] MEDS: ALBUTEROL (0.083%) 2.5MG/3ML NEB HHN SCH (19:59)
[2018-03-19] MEDS: ENOXAPARIN 40MG/0.4ML SYR SUBCUT SCH (20:49)
[2018-03-19] MEDS: PETROLATUM,WHITE OPHTH OINT 3.5GM BOTHEYE SCH (20:49)
[2018-03-19] MEDS ORDERED: VANCOMYCIN 1 G PREMIX 200 ML IV SCH (21:00)
[2018-03-20] VITALS (33 sets, daily range): BP systolic 105–155; BP diastolic 69–88
[2018-03-20] MEDS: PIPERACILLIN/TAZ 3.375G PREMIX 50 ML IV SCH ×3 (02:05→17:43)
[2018-03-20 05:28] LABS: BASOPHILS % 0.2 % (0.0-2.0); EOSINOPHILS % 2.1 % (0.0-5.0); HEMATOCRIT. 35.2 % (42.0-52.0); HEMOGLOBIN. 11.1 g/dL (14.0-18.0); LYMPHOCYTES % 10.6 % (20.0-50.0); MEAN CORPUSCULAR HEMOGLOBIN 28.1 pg (28.0-32.0); MEAN CORPUSCULAR VOLUME 89.1 fL (80.0-94.0); MEAN PLATELET VOLUME 9.4 fl (7.4-10.4); MONOCYTES % 6.9 % (2.0-8.0); NEUTROPHILS % 80.2 % (40.0-76.0); PLATELET 206 x1000/uL (130-400); RED BLOOD CELL COUNT 3.95 mill/uL (4.7-6.1); RED CELL DISTRIBUTION WIDTH 15.9 % (11.6-14.6)
[2018-03-20] MEDS: SODIUM CHLORIDE 0.9% INJ 3ML FLUSH IVF SCH (05:37)
[2018-03-20 06:13] LABS: PHOSPHORUS 4.2 mg/dL (2.5-4.9)
[2018-03-20 07:33] LABS: BG BASE EXCESS 1.2 mmol/L (-2.0-2.0); BG CARBOXYHEMOGLOBIN 0.3 % (0.5-1.5); BG HCO3 ACT 25.4 mmol/L (22.0-26.0); BG METHEMOGLOBIN 0.2 % (0.0-1.5); BG OXYHEMOGLOBIN 98.5 % (94.0-97.0); BG PH 7.432 (7.350-7.450); BG SAMPLE SITE RIGHT RADIAL; BG TIDAL VOLUME(mL) 450 mL; BG TOTAL HEMOGLOBIN 11.2 g/dL (12.0-18.0); BG VENT MODE VENT - SIMV; BG VENT RATE 14 set
[2018-03-20] MEDS: IPRATROPIUM/ALBUTEROL 0.5-3(2.5)MG/3ML NEB INH SCH ×3 (08:15→21:45)
[2018-03-20] MEDS: LACTOBACILLUS GG CAPSULE PEG SCH (09:00)
[2018-03-20 10:38] LABS: INR 1.1; PARTIAL THROMBOPLASTIN TIME 27.3 sec (23.4-31.0); PROTHROMBIN TIME 11.9 sec (9.4-11.6)
[2018-03-20] MEDS: PANTOPRAZOLE SODIUM 40 MG/VIAL IV SCH (10:40)
[2018-03-20] MEDS: DEXTROSE 5% WATER 1,000 ML IV SCH (10:46)
[2018-03-20] MEDS: PETROLATUM,WHITE OPHTH OINT 3.5GM BOTHEYE SCH ×2 (10:47→21:26)
[2018-03-20] MEDS: BLOOD SUGAR DIAGNOSTIC STRIP TEST SCH ×2 (13:00→18:00)
[2018-03-20] MEDS ORDERED: DEXTROSE 50% WATER 50ML SYRINGE IV PRN (13:00)
[2018-03-20] MEDS: INSULIN LISPRO 100 UNITS/ML SUBCUT SCH (18:00)
[2018-03-20] MEDS: VANCOMYCIN 1250MG in DEXTROSE 5% WATER 250ML IV SCH (18:53)
[2018-03-20] MEDS: ALBUTEROL (0.083%) 2.5MG/3ML NEB HHN SCH (20:25)
[2018-03-21] VITALS (40 sets, daily range): BP systolic 120–156; BP diastolic 71–88
[2018-03-21] MEDS: INSULIN LISPRO 100 UNITS/ML SUBCUT SCH
[2018-03-21] MEDS: ALBUTEROL (0.083%) 2.5MG/3ML NEB HHN SCH ×5 (00:27→16:47)
[2018-03-21] MEDS: BLOOD SUGAR DIAGNOSTIC STRIP TEST SCH ×4 (00:58→18:11)
[2018-03-21] MEDS: DEXTROSE 5% WATER 1,000 ML IV SCH ×2 (03:36→15:35)
[2018-03-21] MEDS: PIPERACILLIN/TAZ 3.375G PREMIX 50 ML IV SCH ×3 (03:38→17:36)
[2018-03-21 05:52] LABS: BASOPHILS % 0.4 % (0.0-2.0); HEMATOCRIT. 33.7 % (42.0-52.0); HEMOGLOBIN. 10.5 g/dL (14.0-18.0); LYMPHOCYTES % 10.1 % (20.0-50.0); MEAN CORPUSCULAR HEMOGLOBIN 27.5 pg (28.0-32.0); MEAN CORPUSCULAR VOLUME 87.9 fL (80.0-94.0); MEAN PLATELET VOLUME 9.3 fl (7.4-10.4); NEUTROPHILS % 81.5 % (40.0-76.0); PLATELET 233 x1000/uL (130-400); RED BLOOD CELL COUNT 3.83 mill/uL (4.7-6.1)
[2018-03-21 06:03] LABS: PHOSPHORUS 4.3 mg/dL (2.5-4.9)
[2018-03-21] MEDS: LACTOBACILLUS GG CAPSULE PEG SCH (09:00)
[2018-03-21] MEDS: PETROLATUM,WHITE OPHTH OINT 3.5GM BOTHEYE SCH ×2 (09:27→21:09)
[2018-03-21] MEDS: PANTOPRAZOLE SODIUM 40 MG/VIAL IV SCH (09:30)
[2018-03-21] MEDS ORDERED: PROPOFOL 200MG/20ML VIAL IV ONE (14:01)
[2018-03-21] MEDS ORDERED: ROCURONIUM BROMIDE 10MG/ML VIAL 5ML IV ONE (14:01)
[2018-03-21 16:53] LABS: BG BASE EXCESS -0.7 mmol/L (-2.0-2.0); BG CARBOXYHEMOGLOBIN 0.3 % (0.5-1.5); BG DEOXYHEMOGLOBIN 0.7 % (0.0-5.0); BG FRACTION INSPIRED OXYGEN 50; BG HCO3 ACT 23.7 mmol/L (22.0-26.0); BG METHEMOGLOBIN 0.3 % (0.0-1.5); BG OXYGEN SATURATION 99.3 % (92.0-98.5); BG OXYHEMOGLOBIN 98.7 % (94.0-97.0); BG PCO2 38.4 mmHg (35.0-45.0); BG PH 7.409 (7.350-7.450); BG PO2 235.6 mmHg (75.0-100.0); BG SAMPLE SITE RIGHT RADIAL; BG VENT MODE MASK - SIMPLE
[2018-03-21] MEDS: VANCOMYCIN 1250MG in DEXTROSE 5% WATER 250ML IV SCH (17:35)
[2018-03-21] MEDS: IPRATROPIUM/ALBUTEROL 0.5-3(2.5)MG/3ML NEB INH SCH (20:27)
[2018-03-22] VITALS (82 sets, daily range): BP systolic 112–206; BP diastolic 67–124
[2018-03-22] MEDS: BLOOD SUGAR DIAGNOSTIC STRIP TEST SCH ×3 (00:44→12:17)
[2018-03-22] MEDS: PIPERACILLIN/TAZ 3.375G PREMIX 50 ML IV SCH ×3 (02:09→17:49)
[2018-03-22] MEDS: DEXTROSE 5% WATER 1,000 ML IV SCH ×2 (02:09→18:28)
[2018-03-22] MEDS: IPRATROPIUM/ALBUTEROL 0.5-3(2.5)MG/3ML NEB INH SCH ×3 (02:20→20:32)
[2018-03-22] MEDS: INSULIN LISPRO 100 UNITS/ML SUBCUT SCH ×4 (05:31→18:00)
[2018-03-22 05:41] LABS: BASOPHILS % 0.3 % (0.0-2.0); HEMOGLOBIN. 9.9 g/dL (14.0-18.0); MEAN CORPUSCULAR HEMOGLOBIN 27.9 pg (28.0-32.0); MEAN CORPUSCULAR VOLUME 87.3 fL (80.0-94.0); MEAN PLATELET VOLUME 9.1 fl (7.4-10.4); MONOCYTES % 5.9 % (2.0-8.0); NEUTROPHILS % 79.8 % (40.0-76.0); PLATELET 238 x1000/uL (130-400); RED BLOOD CELL COUNT 3.55 mill/uL (4.7-6.1); RED CELL DISTRIBUTION WIDTH 15.2 % (11.6-14.6)
[2018-03-22 05:59] LABS: PHOSPHORUS 4.1 mg/dL (2.5-4.9)
[2018-03-22] MEDS: ALBUTEROL (0.083%) 2.5MG/3ML NEB HHN SCH ×3 (07:45→16:50)
[2018-03-22 08:57] LABS: BG BASE EXCESS 0.2 mmol/L (-2.0-2.0); BG CARBOXYHEMOGLOBIN 0.3 % (0.5-1.5); BG DEOXYHEMOGLOBIN 4.2 % (0.0-5.0); BG FRACTION INSPIRED OXYGEN 32; BG HCO3 ACT 24.3 mmol/L (22.0-26.0); BG METHEMOGLOBIN 0.6 % (0.0-1.5); BG OXYGEN SATURATION 95.8 % (92.0-98.5); BG OXYHEMOGLOBIN 94.9 % (94.0-97.0); BG PCO2 37.5 mmHg (35.0-45.0); BG PO2 81.1 mmHg (75.0-100.0); BG SAMPLE SITE RIGHT RADIAL; BG TOTAL HEMOGLOBIN 11.4 g/dL (12.0-18.0); BG VENT MODE NASAL CANNULA
[2018-03-22] MEDS: PETROLATUM,WHITE OPHTH OINT 3.5GM BOTHEYE SCH ×2 (09:00→20:57)
[2018-03-22] MEDS ORDERED: MORPHINE SULFATE 2 MG/ML CPJ (NOT FOR IM USE) IV PRN (10:00)
[2018-03-22] MEDS: PANTOPRAZOLE SODIUM 40 MG/VIAL IV SCH (10:43)
[2018-03-22] MEDS: LACTOBACILLUS GG CAPSULE PEG SCH (10:43)
[2018-03-22] MEDS: PROPOFOL 10MG/ML 100ML 100 ML IV PRN ×2 (11:41→18:55)
[2018-03-22 12:51] LABS: BG BASE EXCESS -0.7 mmol/L (-2.0-2.0); BG CARBOXYHEMOGLOBIN 0.3 % (0.5-1.5); BG DEOXYHEMOGLOBIN 2.4 % (0.0-5.0); BG FRACTION INSPIRED OXYGEN 60; BG HCO3 ACT 23.9 mmol/L (22.0-26.0); BG METHEMOGLOBIN 0.2 % (0.0-1.5); BG OXYGEN SATURATION 97.6 % (92.0-98.5); BG OXYHEMOGLOBIN 97.1 % (94.0-97.0); BG PCO2 39.5 mmHg (35.0-45.0); BG PO2 107.4 mmHg (75.0-100.0); BG SAMPLE SITE RIGHT RADIAL; BG TIDAL VOLUME(mL) 450 mL; BG TOTAL HEMOGLOBIN 11.7 g/dL (12.0-18.0); BG VENT MODE VENT - A/C; BG VENT RATE 12 set
[2018-03-22] MEDS: VANCOMYCIN 1250MG in DEXTROSE 5% WATER 250ML IV SCH (18:26)
[2018-03-22] MEDS ORDERED: VECURONIUM BROMIDE 10 MG/VIAL IV ONE (20:11)
[2018-03-22] MEDS ORDERED: PROPOFOL 200MG/20ML VIAL IV ONE (20:12)
[2018-03-22] MEDS: CLONIDINE 0.1MG TABLET PO PRN (20:57)
[2018-03-22] MEDS: GENTAMICIN 0.3% OPHTH DROPS 5ML BOTHEYE SCH (22:10)
[2018-03-23] VITALS (28 sets, daily range): BP systolic 104–149; BP diastolic 68–90
[2018-03-23] MEDS: BLOOD SUGAR DIAGNOSTIC STRIP TEST SCH ×4 (00:29→17:14)
[2018-03-23] MEDS: IPRATROPIUM/ALBUTEROL 0.5-3(2.5)MG/3ML NEB INH SCH (00:31)
[2018-03-23] MEDS: GENTAMICIN 0.3% OPHTH DROPS 5ML BOTHEYE SCH ×6 (01:41→22:00)
[2018-03-23] MEDS: PIPERACILLIN/TAZ 3.375G PREMIX 50 ML IV SCH ×3 (01:41→17:10)
[2018-03-23] MEDS: INSULIN LISPRO 100 UNITS/ML SUBCUT SCH ×4 (05:45→17:14)
[2018-03-23 05:52] LABS: BASOPHILS % 0.2 % (0.0-2.0); EOSINOPHILS % 1.4 % (0.0-5.0); HEMATOCRIT. 30.4 % (42.0-52.0); HEMOGLOBIN. 9.8 g/dL (14.0-18.0); LYMPHOCYTES % 9.3 % (20.0-50.0); MEAN CORPUSCULAR HEMOGLOBIN 27.8 pg (28.0-32.0); MEAN CORPUSCULAR VOLUME 86.5 fL (80.0-94.0); MEAN PLATELET VOLUME 8.9 fl (7.4-10.4); MONOCYTES % 4.9 % (2.0-8.0); NEUTROPHILS % 84.2 % (40.0-76.0); PLATELET 237 x1000/uL (130-400); RED BLOOD CELL COUNT 3.52 mill/uL (4.7-6.1); RED CELL DISTRIBUTION WIDTH 14.9 % (11.6-14.6)
[2018-03-23 06:04] LABS: PHOSPHORUS 4.8 mg/dL (2.5-4.9)
[2018-03-23] MEDS: PETROLATUM,WHITE OPHTH OINT 3.5GM BOTHEYE SCH ×2 (09:14→21:00)
[2018-03-23] MEDS: LACTOBACILLUS GG CAPSULE PEG SCH (09:14)
[2018-03-23] MEDS: PANTOPRAZOLE SODIUM 40 MG/VIAL IV SCH (09:14)
[2018-03-23] MEDS ORDERED: DOCUSATE SODIUM SUGAR FREE 100MG/10ML UDC NG PRN (09:15)
[2018-03-23 10:30] LABS: BG BASE EXCESS 0.7 mmol/L (-2.0-2.0); BG CARBOXYHEMOGLOBIN 0.3 % (0.5-1.5); BG FRACTION INSPIRED OXYGEN 50; BG HCO3 ACT 25.4 mmol/L (22.0-26.0); BG METHEMOGLOBIN 0.2 % (0.0-1.5); BG OXYHEMOGLOBIN 98.5 % (94.0-97.0); BG PCO2 41.1 mmHg (35.0-45.0); BG PH 7.409 (7.350-7.450); BG PRESSURE SUPPORT 12; BG SAMPLE SITE RIGHT RADIAL; BG TIDAL VOLUME(mL) 450 mL; BG TOTAL HEMOGLOBIN 11.2 g/dL (12.0-18.0); BG VENT MODE VENT - SIMV; BG VENT RATE 8 set
[2018-03-23] MEDS: VANCOMYCIN 1250MG in DEXTROSE 5% WATER 250ML IV SCH (19:01)
[2018-03-23] MEDS: ALBUTEROL (0.083%) 2.5MG/3ML NEB HHN SCH (21:26)
[2018-03-24] VITALS (12 sets, daily range): BP systolic 128–152; BP diastolic 69–87
[2018-03-24] MEDS: PIPERACILLIN/TAZ 3.375G PREMIX 50 ML IV SCH ×3 (03:26→17:22)
[2018-03-24] MEDS: GENTAMICIN 0.3% OPHTH DROPS 5ML BOTHEYE SCH ×6 (03:26→22:13)
[2018-03-24] MEDS: ALBUTEROL (0.083%) 2.5MG/3ML NEB HHN SCH ×3 (04:58→20:36)
[2018-03-24] MEDS: INSULIN LISPRO 100 UNITS/ML SUBCUT SCH ×4 (06:00→18:00)
[2018-03-24 06:04] LABS: BASOPHILS % 0.5 % (0.0-2.0); EOSINOPHILS % 1.6 % (0.0-5.0); HEMATOCRIT. 30.2 % (42.0-52.0); HEMOGLOBIN. 9.7 g/dL (14.0-18.0); LYMPHOCYTES % 9.6 % (20.0-50.0); MEAN CORPUSCULAR HEMOGLOBIN 28.1 pg (28.0-32.0); MEAN CORPUSCULAR VOLUME 87.3 fL (80.0-94.0); MEAN PLATELET VOLUME 9.3 fl (7.4-10.4); MONOCYTES % 6.4 % (2.0-8.0); NEUTROPHILS % 81.9 % (40.0-76.0); PLATELET 235 x1000/uL (130-400); RED BLOOD CELL COUNT 3.46 mill/uL (4.7-6.1); RED CELL DISTRIBUTION WIDTH 14.9 % (11.6-14.6)
[2018-03-24] MEDS: BLOOD SUGAR DIAGNOSTIC STRIP TEST SCH ×4 (06:55→18:12)
[2018-03-24 07:19] LABS: PHOSPHORUS 3.4 mg/dL (2.5-4.9)
[2018-03-24] MEDS: LACTOBACILLUS GG CAPSULE PEG SCH (09:59)
[2018-03-24] MEDS: PANTOPRAZOLE SODIUM 40 MG/VIAL IV SCH (09:59)
[2018-03-24] MEDS: PETROLATUM,WHITE OPHTH OINT 3.5GM BOTHEYE SCH ×2 (09:59→22:13)
[2018-03-25] VITALS (12 sets, daily range): BP systolic 123–159; BP diastolic 60–85
[2018-03-25] MEDS: BLOOD SUGAR DIAGNOSTIC STRIP TEST SCH ×4 (00:40→18:23)
[2018-03-25] MEDS: IPRATROPIUM/ALBUTEROL 0.5-3(2.5)MG/3ML NEB INH SCH ×2 (01:09→16:18)
[2018-03-25] MEDS: ACETAMINOPHEN 650MG/20.3ML UDC GT PRN ×2 (01:12→21:50)
[2018-03-25] MEDS: GENTAMICIN 0.3% OPHTH DROPS 5ML BOTHEYE SCH ×6 (01:15→21:50)
[2018-03-25] MEDS: PIPERACILLIN/TAZ 3.375G PREMIX 50 ML IV SCH ×3 (01:15→17:59)
[2018-03-25] MEDS: INSULIN LISPRO 100 UNITS/ML SUBCUT SCH ×4 (06:00→18:23)
[2018-03-25 06:20] LABS: BASOPHILS % 0.3 % (0.0-2.0); EOSINOPHILS % 1.6 % (0.0-5.0); HEMATOCRIT. 29.4 % (42.0-52.0); HEMOGLOBIN. 9.6 g/dL (14.0-18.0); LYMPHOCYTES % 10.1 % (20.0-50.0); MEAN CORPUSCULAR HEMOGLOBIN 28.3 pg (28.0-32.0); MEAN CORPUSCULAR VOLUME 86.8 fL (80.0-94.0); PLATELET 264 x1000/uL (130-400); RED BLOOD CELL COUNT 3.38 mill/uL (4.7-6.1); RED CELL DISTRIBUTION WIDTH 15.2 % (11.6-14.6)
[2018-03-25 07:14] LABS: PHOSPHORUS 3.4 mg/dL (2.5-4.9)
[2018-03-25] MEDS: ALBUTEROL (0.083%) 2.5MG/3ML NEB HHN SCH ×3 (08:22→23:47)
[2018-03-25] MEDS: LACTOBACILLUS GG CAPSULE PEG SCH (09:58)
[2018-03-25] MEDS: PANTOPRAZOLE SODIUM 40 MG/VIAL IV SCH (09:58)
[2018-03-25] MEDS: PETROLATUM,WHITE OPHTH OINT 3.5GM BOTHEYE SCH ×2 (09:59→21:50)
[2018-03-25] MEDS ORDERED: MORPHINE SULFATE 4 MG/ML CPJ (NOT FOR IM USE) IV PRN (14:21)
[2018-03-26] VITALS (10 sets, daily range): BP systolic 135–158; BP diastolic 73–84
[2018-03-26] MEDS: BLOOD SUGAR DIAGNOSTIC STRIP TEST SCH ×4 (00:54→18:48)
[2018-03-26] MEDS: GENTAMICIN 0.3% OPHTH DROPS 5ML BOTHEYE SCH ×6 (02:11→22:45)
[2018-03-26] MEDS: ALBUTEROL (0.083%) 2.5MG/3ML NEB HHN SCH ×3 (04:25→16:21)
[2018-03-26] MEDS: INSULIN LISPRO 100 UNITS/ML SUBCUT SCH ×4 (06:00→18:33)
[2018-03-26 06:07] LABS: PHOSPHORUS 4.4 mg/dL (2.5-4.9)
[2018-03-26 06:19] LABS: BASOPHILS % 0.2 % (0.0-2.0); EOSINOPHILS % 1.5 % (0.0-5.0); HEMATOCRIT. 30.7 % (42.0-52.0); HEMOGLOBIN. 9.7 g/dL (14.0-18.0); MEAN CORPUSCULAR HEMOGLOBIN 27.6 pg (28.0-32.0); MEAN CORPUSCULAR VOLUME 87.3 fL (80.0-94.0); MEAN PLATELET VOLUME 9.2 fl (7.4-10.4); MONOCYTES % 6.7 % (2.0-8.0); NEUTROPHILS % 79.6 % (40.0-76.0); PLATELET 278 x1000/uL (130-400); RED BLOOD CELL COUNT 3.51 mill/uL (4.7-6.1); RED CELL DISTRIBUTION WIDTH 15.4 % (11.6-14.6)
[2018-03-26 09:12] LABS: BG BASE EXCESS 3.4 mmol/L (-2.0-2.0); BG CARBOXYHEMOGLOBIN 0.3 % (0.5-1.5); BG DEOXYHEMOGLOBIN 0.9 % (0.0-5.0); BG FRACTION INSPIRED OXYGEN 60; BG HCO3 ACT 27.6 mmol/L (22.0-26.0); BG METHEMOGLOBIN 0.1 % (0.0-1.5); BG OXYGEN SATURATION 99.1 % (92.0-98.5); BG OXYHEMOGLOBIN 98.7 % (94.0-97.0); BG PCO2 40.5 mmHg (35.0-45.0); BG PH 7.451 (7.350-7.450); BG PO2 221.6 mmHg (75.0-100.0); BG SAMPLE SITE RIGHT RADIAL; BG TOTAL HEMOGLOBIN 10.9 g/dL (12.0-18.0); BG VENT MODE T-TUBE
[2018-03-26] MEDS: LACTOBACILLUS GG CAPSULE PEG SCH (09:28)
[2018-03-26] MEDS: PANTOPRAZOLE SODIUM 40 MG/VIAL IV SCH (09:28)
[2018-03-26] MEDS: PETROLATUM,WHITE OPHTH OINT 3.5GM BOTHEYE SCH ×2 (09:29→22:45)
[2018-03-26] MEDS: IPRATROPIUM/ALBUTEROL 0.5-3(2.5)MG/3ML NEB INH SCH ×2 (12:15→20:52)
[2018-03-27] VITALS (12 sets, daily range): BP systolic 133–163; BP diastolic 64–89
[2018-03-27] MEDS: IPRATROPIUM/ALBUTEROL 0.5-3(2.5)MG/3ML NEB INH SCH ×4 (01:30→20:21)
[2018-03-27] MEDS: MAGNESIUM/ALUMINUM HYDROXIDE/SIMETHICONE 30ML UDC PO PRN (05:20)
[2018-03-27] MEDS: INSULIN LISPRO 100 UNITS/ML SUBCUT SCH ×4 (06:00→18:00)
[2018-03-27] MEDS: BLOOD SUGAR DIAGNOSTIC STRIP TEST SCH ×4 (06:00→18:00)
[2018-03-27 07:21] LABS: BASOPHILS % 0.2 % (0.0-2.0); EOSINOPHILS % 1.5 % (0.0-5.0); HEMATOCRIT. 31.1 % (42.0-52.0); LYMPHOCYTES % 11.5 % (20.0-50.0); MEAN PLATELET VOLUME 9.1 fl (7.4-10.4); NEUTROPHILS % 80.8 % (40.0-76.0); PLATELET 297 x1000/uL (130-400); RED BLOOD CELL COUNT 3.57 mill/uL (4.7-6.1); RED CELL DISTRIBUTION WIDTH 14.9 % (11.6-14.6)
[2018-03-27 07:25] LABS: PHOSPHORUS 4.1 mg/dL (2.5-4.9)
[2018-03-27] MEDS: PETROLATUM,WHITE OPHTH OINT 3.5GM BOTHEYE SCH ×2 (09:00→22:46)
[2018-03-27] MEDS: LACTOBACILLUS GG CAPSULE PEG SCH (09:56)
[2018-03-27] MEDS: ACETAMINOPHEN 650MG/20.3ML UDC GT PRN (09:56)
[2018-03-27] MEDS: PANTOPRAZOLE SODIUM 40 MG/VIAL IV SCH (09:56)
[2018-03-27] MEDS: CLONIDINE 0.1MG TABLET PO PRN (14:17)
[2018-03-28] VITALS (16 sets, daily range): BP systolic 132–157; BP diastolic 72–86
[2018-03-28] MEDS: BLOOD SUGAR DIAGNOSTIC STRIP TEST SCH ×5 (00:19→23:52)
[2018-03-28] MEDS: IPRATROPIUM/ALBUTEROL 0.5-3(2.5)MG/3ML NEB INH SCH ×4 (02:15→20:52)
[2018-03-28] MEDS: INSULIN LISPRO 100 UNITS/ML SUBCUT SCH ×4 (06:00→17:31)
[2018-03-28 06:07] LABS: BASOPHILS % 0.5 % (0.0-2.0); EOSINOPHILS % 1.5 % (0.0-5.0); HEMOGLOBIN. 10.6 g/dL (14.0-18.0); LYMPHOCYTES % 14.7 % (20.0-50.0); MEAN CORPUSCULAR HEMOGLOBIN 28.1 pg (28.0-32.0); MEAN CORPUSCULAR VOLUME 88.1 fL (80.0-94.0); MEAN PLATELET VOLUME 9.3 fl (7.4-10.4); MONOCYTES % 5.8 % (2.0-8.0); NEUTROPHILS % 77.5 % (40.0-76.0); PLATELET 267 x1000/uL (130-400); RED BLOOD CELL COUNT 3.75 mill/uL (4.7-6.1); RED CELL DISTRIBUTION WIDTH 15.4 % (11.6-14.6)
[2018-03-28 06:38] LABS: CHLORIDE 106 mEq/L (98-107)
[2018-03-28 06:49] LABS: PHOSPHORUS 4.1 mg/dL (2.5-4.9)
[2018-03-28] MEDS: PETROLATUM,WHITE OPHTH OINT 3.5GM BOTHEYE SCH ×2 (09:03→20:36)
[2018-03-28] MEDS: LACTOBACILLUS GG CAPSULE PEG SCH (09:03)
[2018-03-28] MEDS ORDERED: SODIUM POLYSTYRENE SULFONATE 15 G/60 ML BOT PO NR (09:45)
[2018-03-29] VITALS (15 sets, daily range): BP systolic 128–154; BP diastolic 74–92
[2018-03-29] MEDS: IPRATROPIUM/ALBUTEROL 0.5-3(2.5)MG/3ML NEB INH SCH ×4 (00:51→21:49)
[2018-03-29] MEDS: BLOOD SUGAR DIAGNOSTIC STRIP TEST SCH ×3 (05:11→17:52)
[2018-03-29] MEDS: INSULIN LISPRO 100 UNITS/ML SUBCUT SCH ×4 (06:00→18:15)
[2018-03-29] MEDS: PETROLATUM,WHITE OPHTH OINT 3.5GM BOTHEYE SCH ×2 (08:27→20:47)
[2018-03-29] MEDS: LACTOBACILLUS GG CAPSULE PEG SCH (08:27)
[2018-03-29 15:51] LABS: BASOPHILS % 0.3 % (0.0-2.0); HEMATOCRIT. 32.9 % (42.0-52.0); HEMOGLOBIN. 10.4 g/dL (14.0-18.0); LYMPHOCYTES % 13.7 % (20.0-50.0); MEAN CORPUSCULAR HEMOGLOBIN 27.6 pg (28.0-32.0); MEAN PLATELET VOLUME 8.7 fl (7.4-10.4); MONOCYTES % 5.2 % (2.0-8.0); NEUTROPHILS % 79.8 % (40.0-76.0); PLATELET 289 x1000/uL (130-400); RED BLOOD CELL COUNT 3.78 mill/uL (4.7-6.1)
[2018-03-29 16:03] LABS: CHLORIDE 103 mEq/L (98-107)
[2018-03-29] MEDS: ENOXAPARIN 40MG/0.4ML SYR SUBCUT SCH (20:47)
[2018-03-30] VITALS (12 sets, daily range): BP systolic 133–152; BP diastolic 79–87
[2018-03-30] MEDS: BLOOD SUGAR DIAGNOSTIC STRIP TEST SCH ×5 (00:12→23:21)
[2018-03-30] MEDS: IPRATROPIUM/ALBUTEROL 0.5-3(2.5)MG/3ML NEB INH SCH ×2 (02:37→08:26)
[2018-03-30] MEDS: INSULIN LISPRO 100 UNITS/ML SUBCUT SCH ×5 (05:39→23:21)
[2018-03-30] MEDS: LACTOBACILLUS GG CAPSULE PEG SCH (08:15)
[2018-03-30] MEDS: PETROLATUM,WHITE OPHTH OINT 3.5GM BOTHEYE SCH ×2 (08:15→20:42)
[2018-03-30 08:23] LABS: BASOPHILS % 0.4 % (0.0-2.0); EOSINOPHILS % 1.5 % (0.0-5.0); HEMOGLOBIN. 10.9 g/dL (14.0-18.0); LYMPHOCYTES % 13.4 % (20.0-50.0); MEAN CORPUSCULAR HEMOGLOBIN 27.9 pg (28.0-32.0); MEAN CORPUSCULAR VOLUME 87.4 fL (80.0-94.0); MEAN PLATELET VOLUME 9.1 fl (7.4-10.4); MONOCYTES % 6.5 % (2.0-8.0); NEUTROPHILS % 78.2 % (40.0-76.0); PLATELET 257 x1000/uL (130-400); RED BLOOD CELL COUNT 3.89 mill/uL (4.7-6.1); RED CELL DISTRIBUTION WIDTH 14.7 % (11.6-14.6)
[2018-03-30 08:58] LABS: CHLORIDE 105 mEq/L (98-107)
[2018-03-30] MEDS: IPRATROPIUM/ALBUTEROL 0.5-3(2.5)MG/3ML NEB HHN SCH ×3 (14:03→20:31)
[2018-03-30] MEDS: ENOXAPARIN 40MG/0.4ML SYR SUBCUT SCH (20:42)
[2018-03-31] VITALS (11 sets, daily range): BP systolic 126–163; BP diastolic 76–99
[2018-03-31] MEDS: IPRATROPIUM/ALBUTEROL 0.5-3(2.5)MG/3ML NEB HHN SCH ×7 (00:34→23:48)
[2018-03-31] MEDS: ACETYLCYSTEINE 100MG/ML 10% VIAL 4ML INH SCH ×4 (00:34→23:48)
[2018-03-31] MEDS: BLOOD SUGAR DIAGNOSTIC STRIP TEST SCH ×3 (05:26→17:35)
[2018-03-31] MEDS: INSULIN LISPRO 100 UNITS/ML SUBCUT SCH ×3 (05:26→17:35)
[2018-03-31 05:58] LABS: CHLORIDE 108 mEq/L (98-107)
[2018-03-31 06:14] LABS: PREALBUMIN 32.6 mg/dL (20.0-40.0)
[2018-03-31 06:28] LABS: BASOPHILS % 0.4 % (0.0-2.0); EOSINOPHILS % 0.9 % (0.0-5.0); HEMATOCRIT. 34.1 % (42.0-52.0); HEMOGLOBIN. 10.8 g/dL (14.0-18.0); LYMPHOCYTES % 15.4 % (20.0-50.0); MEAN CORPUSCULAR HEMOGLOBIN 27.8 pg (28.0-32.0); MEAN CORPUSCULAR VOLUME 88.1 fL (80.0-94.0); MEAN PLATELET VOLUME 9.6 fl (7.4-10.4); MONOCYTES % 6.2 % (2.0-8.0); NEUTROPHILS % 77.1 % (40.0-76.0); PLATELET 249 x1000/uL (130-400); RED BLOOD CELL COUNT 3.87 mill/uL (4.7-6.1); RED CELL DISTRIBUTION WIDTH 15.1 % (11.6-14.6)
[2018-03-31] MEDS: LACTOBACILLUS GG CAPSULE PEG SCH (09:10)
[2018-03-31] MEDS: PETROLATUM,WHITE OPHTH OINT 3.5GM BOTHEYE SCH ×2 (09:10→20:46)
[2018-03-31 14:58] LABS: CLARITY URINE CLEAR (CLEAR); COLOR URINE YELLOW (YELLOW); KETONES URINE NEGATIVE (NEGATIVE); LEUKOCYTE ESTERASE URINE TRACE (NEGATIVE); NITRITE URINE NEGATIVE (NEGATIVE); OCCULT BLOOD URINE 2+ (NEGATIVE); PROTEIN URINE 1+ (NEGATIVE); SPECIFIC GRAVITY URINE 1.021 (1.005-1.030)
[2018-03-31] MEDS: ENOXAPARIN 40MG/0.4ML SYR SUBCUT SCH (20:44)
[2018-04-01] VITALS (18 sets, daily range): BP systolic 118–144; BP diastolic 70–92
[2018-04-01] MEDS: BLOOD SUGAR DIAGNOSTIC STRIP TEST SCH ×4 (00:08→18:00)
[2018-04-01] MEDS: ACETYLCYSTEINE 100MG/ML 10% VIAL 4ML INH SCH ×3 (00:57→16:21)
[2018-04-01] MEDS: IPRATROPIUM/ALBUTEROL 0.5-3(2.5)MG/3ML NEB HHN SCH ×5 (04:04→21:07)
[2018-04-01] MEDS: INSULIN LISPRO 100 UNITS/ML SUBCUT SCH ×4 (05:20→18:00)
[2018-04-01 06:21] LABS: CHLORIDE 106 mEq/L (98-107)
[2018-04-01 06:22] LABS: BASOPHILS % 0.2 % (0.0-2.0); EOSINOPHILS % 0.5 % (0.0-5.0); HEMATOCRIT. 33.6 % (42.0-52.0); HEMOGLOBIN. 10.7 g/dL (14.0-18.0); LYMPHOCYTES % 14.2 % (20.0-50.0); MEAN CORPUSCULAR HEMOGLOBIN 27.9 pg (28.0-32.0); MEAN CORPUSCULAR VOLUME 87.3 fL (80.0-94.0); MEAN PLATELET VOLUME 9.8 fl (7.4-10.4); MONOCYTES % 5.3 % (2.0-8.0); NEUTROPHILS % 79.8 % (40.0-76.0); PLATELET 237 x1000/uL (130-400); RED BLOOD CELL COUNT 3.84 mill/uL (4.7-6.1); RED CELL DISTRIBUTION WIDTH 14.8 % (11.6-14.6)
[2018-04-01] MEDS: LACTOBACILLUS GG CAPSULE PEG SCH (10:00)
[2018-04-01 14:13] LABS: PREALBUMIN 30.9 mg/dL (20.0-40.0)
[2018-04-01] MEDS: PETROLATUM,WHITE OPHTH OINT 3.5GM BOTHEYE SCH ×2 (15:00→21:00)
[2018-04-01] MEDS ORDERED: FLUCONAZOLE 200MG TABLET PO NR (18:00)
[2018-04-01] MEDS: ENOXAPARIN 40MG/0.4ML SYR SUBCUT SCH (20:24)
[2018-04-02] VITALS (13 sets, daily range): BP systolic 121–153; BP diastolic 71–89
[2018-04-02] MEDS: IPRATROPIUM/ALBUTEROL 0.5-3(2.5)MG/3ML NEB HHN SCH ×6 (00:57→20:55)
[2018-04-02] MEDS: BLOOD SUGAR DIAGNOSTIC STRIP TEST SCH ×4 (06:00→17:38)
[2018-04-02] MEDS: INSULIN LISPRO 100 UNITS/ML SUBCUT SCH ×4 (06:00→17:38)
[2018-04-02 06:16] LABS: BASOPHILS % 0.3 % (0.0-2.0); EOSINOPHILS % 0.8 % (0.0-5.0); HEMATOCRIT. 33.5 % (42.0-52.0); HEMOGLOBIN. 10.6 g/dL (14.0-18.0); LYMPHOCYTES % 14.6 % (20.0-50.0); MEAN CORPUSCULAR HEMOGLOBIN 27.9 pg (28.0-32.0); MEAN CORPUSCULAR VOLUME 87.8 fL (80.0-94.0); MEAN PLATELET VOLUME 10.4 fl (7.4-10.4); MONOCYTES % 6.7 % (2.0-8.0); NEUTROPHILS % 77.6 % (40.0-76.0); PLATELET 232 x1000/uL (130-400); RED BLOOD CELL COUNT 3.82 mill/uL (4.7-6.1); RED CELL DISTRIBUTION WIDTH 14.8 % (11.6-14.6)
[2018-04-02 06:43] LABS: PHOSPHORUS 3.8 mg/dL (2.5-4.9)
[2018-04-02 07:34] LABS: CHLORIDE 107 mEq/L (98-107)
[2018-04-02] MEDS: ACETYLCYSTEINE 100MG/ML 10% VIAL 4ML INH SCH ×2 (08:28→16:13)
[2018-04-02] MEDS: LACTOBACILLUS GG CAPSULE PEG SCH (09:44)
[2018-04-02] MEDS: MAGNESIUM/ALUMINUM HYDROXIDE/SIMETHICONE 30ML UDC PO PRN (09:44)
[2018-04-02] MEDS: PETROLATUM,WHITE OPHTH OINT 3.5GM BOTHEYE SCH ×2 (09:45→20:52)
[2018-04-02] MEDS: ENOXAPARIN 40MG/0.4ML SYR SUBCUT SCH (20:47)
[2018-04-03] VITALS (14 sets, daily range): BP systolic 119–159; BP diastolic 67–93
[2018-04-03] MEDS: ACETYLCYSTEINE 100MG/ML 10% VIAL 4ML INH SCH ×4 (00:36→23:46)
[2018-04-03] MEDS: IPRATROPIUM/ALBUTEROL 0.5-3(2.5)MG/3ML NEB HHN SCH ×7 (00:36→23:46)
[2018-04-03] MEDS: INSULIN LISPRO 100 UNITS/ML SUBCUT SCH ×4 (05:45→18:45)
[2018-04-03 07:39] LABS: CHLORIDE 106 mEq/L (98-107)
[2018-04-03 07:44] LABS: BASOPHILS % 0.3 % (0.0-2.0); EOSINOPHILS % 0.9 % (0.0-5.0); HEMATOCRIT. 33.4 % (42.0-52.0); HEMOGLOBIN. 10.7 g/dL (14.0-18.0); LYMPHOCYTES % 21.3 % (20.0-50.0); MEAN CORPUSCULAR HEMOGLOBIN 28.1 pg (28.0-32.0); MEAN CORPUSCULAR VOLUME 87.2 fL (80.0-94.0); MEAN PLATELET VOLUME 10.5 fl (7.4-10.4); MONOCYTES % 7.6 % (2.0-8.0); NEUTROPHILS % 69.9 % (40.0-76.0); PHOSPHORUS 2.8 mg/dL (2.5-4.9); PLATELET 234 x1000/uL (130-400); RED BLOOD CELL COUNT 3.83 mill/uL (4.7-6.1)
[2018-04-03] MEDS: PETROLATUM,WHITE OPHTH OINT 3.5GM BOTHEYE SCH ×2 (08:09→20:35)
[2018-04-03] MEDS: LACTOBACILLUS GG CAPSULE PEG SCH (08:10)
[2018-04-03] MEDS: BLOOD SUGAR DIAGNOSTIC STRIP TEST SCH ×3 (12:57→18:45)
[2018-04-03 16:39] LABS: CLARITY URINE CLEAR (CLEAR); COLOR URINE YELLOW (YELLOW); KETONES URINE NEGATIVE (NEGATIVE); LEUKOCYTE ESTERASE URINE TRACE (NEGATIVE); NITRITE URINE NEGATIVE (NEGATIVE); OCCULT BLOOD URINE 1+ (NEGATIVE); PROTEIN URINE TRACE (NEGATIVE); SPECIFIC GRAVITY URINE 1.018 (1.005-1.030); UROBILINOGEN URINE 0.2 E.U./dL (0.2-1.0)
[2018-04-03] MEDS: DOCUSATE SODIUM SUGAR FREE 100MG/10ML UDC NG SCH (18:03)
[2018-04-03] MEDS: ENOXAPARIN 40MG/0.4ML SYR SUBCUT SCH (20:35)
[2018-04-04] VITALS (15 sets, daily range): BP systolic 104–139; BP diastolic 67–87
[2018-04-04] MEDS: BLOOD SUGAR DIAGNOSTIC STRIP TEST SCH ×4 (00:24→17:47)
[2018-04-04] MEDS: IPRATROPIUM/ALBUTEROL 0.5-3(2.5)MG/3ML NEB HHN SCH ×5 (04:07→20:38)
[2018-04-04] MEDS: INSULIN LISPRO 100 UNITS/ML SUBCUT SCH ×4 (05:51→18:00)
[2018-04-04 06:58] LABS: BASOPHILS % 0.3 % (0.0-2.0); HEMATOCRIT. 33.9 % (42.0-52.0); HEMOGLOBIN. 10.7 g/dL (14.0-18.0); LYMPHOCYTES % 20.9 % (20.0-50.0); MEAN CORPUSCULAR HEMOGLOBIN 27.7 pg (28.0-32.0); MEAN CORPUSCULAR VOLUME 88.1 fL (80.0-94.0); MEAN PLATELET VOLUME 10.8 fl (7.4-10.4); MONOCYTES % 7.6 % (2.0-8.0); NEUTROPHILS % 70.2 % (40.0-76.0); PLATELET 235 x1000/uL (130-400); RED BLOOD CELL COUNT 3.85 mill/uL (4.7-6.1); RED CELL DISTRIBUTION WIDTH 14.9 % (11.6-14.6)
[2018-04-04 06:59] LABS: CHLORIDE 105 mEq/L (98-107)
[2018-04-04 07:05] LABS: PHOSPHORUS 4.6 mg/dL (2.5-4.9)
[2018-04-04] MEDS: PETROLATUM,WHITE OPHTH OINT 3.5GM BOTHEYE SCH ×2 (08:23→21:43)
[2018-04-04] MEDS: DOCUSATE SODIUM SUGAR FREE 100MG/10ML UDC NG SCH ×2 (08:23→17:47)
[2018-04-04] MEDS: LACTOBACILLUS GG CAPSULE PEG SCH (08:23)
[2018-04-04] MEDS: ACETYLCYSTEINE 100MG/ML 10% VIAL 4ML INH SCH ×2 (08:39→15:57)
[2018-04-04] MEDS: ENOXAPARIN 40MG/0.4ML SYR SUBCUT SCH (21:43)
[2018-04-05] VITALS (13 sets, daily range): BP systolic 110–170; BP diastolic 66–96
[2018-04-05] MEDS: IPRATROPIUM/ALBUTEROL 0.5-3(2.5)MG/3ML NEB HHN SCH ×6 (01:02→20:10)
[2018-04-05] MEDS: INSULIN LISPRO 100 UNITS/ML SUBCUT SCH ×4 (06:00→17:56)
[2018-04-05] MEDS: BLOOD SUGAR DIAGNOSTIC STRIP TEST SCH ×4 (06:49→17:55)
[2018-04-05 07:36] LABS: CHLORIDE 104 mEq/L (98-107)
[2018-04-05 07:38] LABS: BASOPHILS % 0.3 % (0.0-2.0); EOSINOPHILS % 1.3 % (0.0-5.0); HEMATOCRIT. 32.3 % (42.0-52.0); HEMOGLOBIN. 10.2 g/dL (14.0-18.0); LYMPHOCYTES % 24.5 % (20.0-50.0); MEAN CORPUSCULAR HEMOGLOBIN 27.6 pg (28.0-32.0); MONOCYTES % 7.3 % (2.0-8.0); NEUTROPHILS % 66.6 % (40.0-76.0); PLATELET 239 x1000/uL (130-400); RED BLOOD CELL COUNT 3.71 mill/uL (4.7-6.1); RED CELL DISTRIBUTION WIDTH 14.7 % (11.6-14.6)
[2018-04-05] MEDS: PETROLATUM,WHITE OPHTH OINT 3.5GM BOTHEYE SCH ×2 (09:16→20:29)
[2018-04-05] MEDS: DOCUSATE SODIUM SUGAR FREE 100MG/10ML UDC NG SCH ×2 (09:16→17:55)
[2018-04-05] MEDS: LACTOBACILLUS GG CAPSULE PEG SCH (09:16)
[2018-04-05] MEDS: ENOXAPARIN 40MG/0.4ML SYR SUBCUT SCH (20:30)
[2018-04-06] VITALS (12 sets, daily range): BP systolic 107–151; BP diastolic 64–88
[2018-04-06] MEDS: IPRATROPIUM/ALBUTEROL 0.5-3(2.5)MG/3ML NEB HHN SCH ×4 (00:20→20:41)
[2018-04-06] MEDS: BLOOD SUGAR DIAGNOSTIC STRIP TEST SCH ×4 (00:31→17:15)
[2018-04-06] MEDS: INSULIN LISPRO 100 UNITS/ML SUBCUT SCH ×4 (06:00→17:15)
[2018-04-06 06:55] LABS: BASOPHILS % 0.4 % (0.0-2.0); EOSINOPHILS % 1.1 % (0.0-5.0); HEMATOCRIT. 35.6 % (42.0-52.0); HEMOGLOBIN. 11.3 g/dL (14.0-18.0); LYMPHOCYTES % 22.9 % (20.0-50.0); MEAN CORPUSCULAR HEMOGLOBIN 27.9 pg (28.0-32.0); MEAN CORPUSCULAR VOLUME 87.6 fL (80.0-94.0); MEAN PLATELET VOLUME 10.7 fl (7.4-10.4); NEUTROPHILS % 68.6 % (40.0-76.0); PLATELET 236 x1000/uL (130-400); RED BLOOD CELL COUNT 4.06 mill/uL (4.7-6.1); RED CELL DISTRIBUTION WIDTH 14.7 % (11.6-14.6)
[2018-04-06 07:28] LABS: CHLORIDE 105 mEq/L (98-107)
[2018-04-06 07:36] LABS: PHOSPHORUS 3.6 mg/dL (2.5-4.9)
[2018-04-06] MEDS: DOCUSATE SODIUM SUGAR FREE 100MG/10ML UDC NG SCH ×2 (09:00→17:16)
[2018-04-06] MEDS: PETROLATUM,WHITE OPHTH OINT 3.5GM BOTHEYE SCH ×2 (09:01→20:30)
[2018-04-06] MEDS: LACTOBACILLUS GG CAPSULE PEG SCH (09:01)
[2018-04-06] MEDS: ENOXAPARIN 40MG/0.4ML SYR SUBCUT SCH (20:26)
[2018-04-07] VITALS (12 sets, daily range): BP systolic 112–142; BP diastolic 66–84
[2018-04-07] MEDS: IPRATROPIUM/ALBUTEROL 0.5-3(2.5)MG/3ML NEB HHN SCH ×7 (00:26→23:57)
[2018-04-07] MEDS: INSULIN LISPRO 100 UNITS/ML SUBCUT SCH ×4 (06:00→17:38)
[2018-04-07] MEDS: BLOOD SUGAR DIAGNOSTIC STRIP TEST SCH ×4 (06:34→17:35)
[2018-04-07 06:41] LABS: BASOPHILS % 0.3 % (0.0-2.0); EOSINOPHILS % 1.1 % (0.0-5.0); HEMATOCRIT. 31.9 % (42.0-52.0); HEMOGLOBIN. 10.2 g/dL (14.0-18.0); LYMPHOCYTES % 24.9 % (20.0-50.0); MEAN CORPUSCULAR HEMOGLOBIN 27.6 pg (28.0-32.0); MEAN CORPUSCULAR VOLUME 86.6 fL (80.0-94.0); MEAN PLATELET VOLUME 10.7 fl (7.4-10.4); MONOCYTES % 7.3 % (2.0-8.0); NEUTROPHILS % 66.4 % (40.0-76.0); PLATELET 242 x1000/uL (130-400); RED BLOOD CELL COUNT 3.68 mill/uL (4.7-6.1); RED CELL DISTRIBUTION WIDTH 14.6 % (11.6-14.6)
[2018-04-07 07:06] LABS: CHLORIDE 105 mEq/L (98-107)
[2018-04-07 07:20] LABS: PHOSPHORUS 3.7 mg/dL (2.5-4.9)
[2018-04-07] MEDS: DOCUSATE SODIUM SUGAR FREE 100MG/10ML UDC NG SCH ×2 (09:05→17:36)
[2018-04-07] MEDS: LACTOBACILLUS GG CAPSULE PEG SCH (09:05)
[2018-04-07] MEDS: PETROLATUM,WHITE OPHTH OINT 3.5GM BOTHEYE SCH ×2 (09:06→20:44)
[2018-04-07] MEDS: ENOXAPARIN 40MG/0.4ML SYR SUBCUT SCH (20:44)
[2018-04-08] VITALS (12 sets, daily range): BP systolic 109–136; BP diastolic 67–87
[2018-04-08] MEDS: IPRATROPIUM/ALBUTEROL 0.5-3(2.5)MG/3ML NEB HHN SCH ×6 (04:28→23:45)
[2018-04-08] MEDS: INSULIN LISPRO 100 UNITS/ML SUBCUT SCH ×4 (06:00→17:14)
[2018-04-08] MEDS: BLOOD SUGAR DIAGNOSTIC STRIP TEST SCH ×4 (06:00→17:14)
[2018-04-08 06:35] LABS: BASOPHILS % 0.4 % (0.0-2.0); EOSINOPHILS % 1.1 % (0.0-5.0); HEMOGLOBIN. 10.2 g/dL (14.0-18.0); LYMPHOCYTES % 23.1 % (20.0-50.0); MEAN CORPUSCULAR HEMOGLOBIN 27.9 pg (28.0-32.0); MEAN CORPUSCULAR VOLUME 87.7 fL (80.0-94.0); MEAN PLATELET VOLUME 10.5 fl (7.4-10.4); MONOCYTES % 6.8 % (2.0-8.0); NEUTROPHILS % 68.6 % (40.0-76.0); PLATELET 224 x1000/uL (130-400); RED BLOOD CELL COUNT 3.65 mill/uL (4.7-6.1); RED CELL DISTRIBUTION WIDTH 14.8 % (11.6-14.6)
[2018-04-08 07:09] LABS: CHLORIDE 105 mEq/L (98-107)
[2018-04-08] MEDS: PETROLATUM,WHITE OPHTH OINT 3.5GM BOTHEYE SCH ×2 (08:49→20:14)
[2018-04-08] MEDS: LACTOBACILLUS GG CAPSULE PEG SCH (08:49)
[2018-04-08] MEDS: DOCUSATE SODIUM SUGAR FREE 100MG/10ML UDC NG SCH ×2 (08:49→17:15)
[2018-04-08] MEDS: ENOXAPARIN 40MG/0.4ML SYR SUBCUT SCH (20:14)
[2018-04-09] VITALS (12 sets, daily range): BP systolic 104–146; BP diastolic 60–83
[2018-04-09] MEDS: IPRATROPIUM/ALBUTEROL 0.5-3(2.5)MG/3ML NEB HHN SCH ×6 (04:12→23:49)
[2018-04-09] MEDS: INSULIN LISPRO 100 UNITS/ML SUBCUT SCH ×4 (06:00→17:50)
[2018-04-09] MEDS: BLOOD SUGAR DIAGNOSTIC STRIP TEST SCH ×4 (06:00→17:26)
[2018-04-09 06:37] LABS: BASOPHILS % 0.2 % (0.0-2.0); EOSINOPHILS % 1.3 % (0.0-5.0); HEMATOCRIT. 32.2 % (42.0-52.0); HEMOGLOBIN. 10.4 g/dL (14.0-18.0); LYMPHOCYTES % 20.7 % (20.0-50.0); MEAN PLATELET VOLUME 10.3 fl (7.4-10.4); MONOCYTES % 6.4 % (2.0-8.0); NEUTROPHILS % 71.4 % (40.0-76.0); PLATELET 223 x1000/uL (130-400); RED BLOOD CELL COUNT 3.71 mill/uL (4.7-6.1); RED CELL DISTRIBUTION WIDTH 14.8 % (11.6-14.6)
[2018-04-09 06:59] LABS: CHLORIDE 107 mEq/L (98-107)
[2018-04-09 07:07] LABS: PHOSPHORUS 4.3 mg/dL (2.5-4.9)
[2018-04-09] MEDS: LACTOBACILLUS GG CAPSULE PEG SCH (08:40)
[2018-04-09] MEDS: DOCUSATE SODIUM SUGAR FREE 100MG/10ML UDC NG SCH ×2 (08:40→17:49)
[2018-04-09] MEDS: PETROLATUM,WHITE OPHTH OINT 3.5GM BOTHEYE SCH ×2 (08:40→21:24)
[2018-04-09 16:18] LABS: CHLORIDE 108 mEq/L (98-107)
[2018-04-09 16:42] LABS: CLARITY URINE CLEAR (CLEAR); COLOR URINE YELLOW (YELLOW); KETONES URINE NEGATIVE (NEGATIVE); LEUKOCYTE ESTERASE URINE NEGATIVE (NEGATIVE); NITRITE URINE NEGATIVE (NEGATIVE); OCCULT BLOOD URINE NEGATIVE (NEGATIVE); PH URINE 5.5 (4.5-8.0); PROTEIN URINE NEGATIVE (NEGATIVE); SPECIFIC GRAVITY URINE 1.018 (1.005-1.030)
[2018-04-09] MEDS: ENOXAPARIN 40MG/0.4ML SYR SUBCUT SCH (21:24)
[2018-04-10] VITALS (16 sets, daily range): BP systolic 119–155; BP diastolic 73–92
[2018-04-10] MEDS: BLOOD SUGAR DIAGNOSTIC STRIP TEST SCH ×4 (00:19→18:00)
[2018-04-10] MEDS: INSULIN LISPRO 100 UNITS/ML SUBCUT SCH ×4 (00:19→18:21)
[2018-04-10] MEDS: IPRATROPIUM/ALBUTEROL 0.5-3(2.5)MG/3ML NEB HHN SCH ×5 (04:11→20:09)
[2018-04-10 07:28] LABS: CHLORIDE 108 mEq/L (98-107)
[2018-04-10 07:31] LABS: BASOPHILS % 0.4 % (0.0-2.0); HEMATOCRIT. 34.1 % (42.0-52.0); HEMOGLOBIN. 10.9 g/dL (14.0-18.0); LYMPHOCYTES % 19.1 % (20.0-50.0); MEAN CORPUSCULAR VOLUME 87.4 fL (80.0-94.0); MEAN PLATELET VOLUME 10.9 fl (7.4-10.4); MONOCYTES % 6.7 % (2.0-8.0); NEUTROPHILS % 72.8 % (40.0-76.0); PLATELET 230 x1000/uL (130-400); RED CELL DISTRIBUTION WIDTH 14.9 % (11.6-14.6)
[2018-04-10] MEDS: LACTOBACILLUS GG CAPSULE PEG SCH (08:56)
[2018-04-10] MEDS: DOCUSATE SODIUM SUGAR FREE 100MG/10ML UDC NG SCH ×2 (08:56→18:24)
[2018-04-10] MEDS: PETROLATUM,WHITE OPHTH OINT 3.5GM BOTHEYE SCH ×2 (08:57→20:33)
[2018-04-10] MEDS: ENOXAPARIN 40MG/0.4ML SYR SUBCUT SCH (20:33)
[2018-04-11] VITALS (7 sets, daily range): BP systolic 111–148; BP diastolic 74–86
[2018-04-11] MEDS: IPRATROPIUM/ALBUTEROL 0.5-3(2.5)MG/3ML NEB HHN SCH ×4 (00:15→12:02)
[2018-04-11] MEDS: ACETYLCYSTEINE 100MG/ML 10% VIAL 4ML INH SCH ×2 (00:15→07:54)
[2018-04-11] MEDS: INSULIN LISPRO 100 UNITS/ML SUBCUT SCH ×2 (06:00)
[2018-04-11 06:01] LABS: BASOPHILS % 0.2 % (0.0-2.0); EOSINOPHILS % 0.6 % (0.0-5.0); HEMATOCRIT. 33.4 % (42.0-52.0); HEMOGLOBIN. 10.6 g/dL (14.0-18.0); LYMPHOCYTES % 19.6 % (20.0-50.0); MEAN CORPUSCULAR HEMOGLOBIN 27.9 pg (28.0-32.0); MEAN CORPUSCULAR VOLUME 88.1 fL (80.0-94.0); MEAN PLATELET VOLUME 10.8 fl (7.4-10.4); MONOCYTES % 5.7 % (2.0-8.0); NEUTROPHILS % 73.9 % (40.0-76.0); PLATELET 212 x1000/uL (130-400); RED CELL DISTRIBUTION WIDTH 15.1 % (11.6-14.6)
[2018-04-11 06:21] LABS: CHLORIDE 112 mEq/L (98-107)
[2018-04-11 06:37] LABS: PHOSPHORUS 3.6 mg/dL (2.5-4.9)
[2018-04-11 06:48] LABS: PREALBUMIN 28.2 mg/dL (20.0-40.0)
[2018-04-11] MEDS: BLOOD SUGAR DIAGNOSTIC STRIP TEST SCH ×2 (06:57)
[2018-04-11] MEDS ORDERED: DEXTROSE 5% WATER 1,000 ML IV SCH (08:15)
[2018-04-11] MEDS: DOCUSATE SODIUM SUGAR FREE 100MG/10ML UDC NG SCH (08:36)
[2018-04-11] MEDS: LACTOBACILLUS GG CAPSULE PEG SCH (08:36)
[2018-04-11] MEDS: PETROLATUM,WHITE OPHTH OINT 3.5GM BOTHEYE SCH (08:40)
== END 2018-04-11 12:40 | DRG 3 ==
LOC: ER 09:11 → EDBEDREQSVC 10:15 → MICUNO 13:08 → EDBEDREQ 13:17 → ENRESERV 14:04 → 5EST 03-23 19:00
PROVIDERS: ADMIT Family Medicine; ATTEND Family Medicine
PROC: 0BH18EZ Insertion of Endotracheal Airway into Trachea, Via Natural or Artificial Opening Endoscopic (ICD-10-PCS; principal; 2018-03-18)
PROC: 5A1955Z Respiratory Ventilation, Greater than 96 Consecutive Hours (ICD-10-PCS; 2018-03-18)
PROC: 02HV33Z Insertion of Infusion Device into Superior Vena Cava, Percutaneous Approach (ICD-10-PCS; 2018-03-18)
PROC: B548ZZA Ultrasonography of Superior Vena Cava, Guidance (ICD-10-PCS; 2018-03-18)
PROC: 0B110F4 Bypass Trachea to Cutaneous with Tracheostomy Device, Open Approach (ICD-10-PCS; 2018-03-22)
PROC: 0GBJ0ZZ Excision of Thyroid Gland Isthmus, Open Approach (ICD-10-PCS; 2018-03-22)
DX: A41.9 Sepsis, unspecified organism (principal); E43 Unspecified severe protein-calorie malnutrition; J69.0 Pneumonitis due to inhalation of food and vomit; G93.40 Encephalopathy, unspecified; J96.01 Acute respiratory failure with hypoxia; N17.9 Acute kidney failure, unspecified; E87.0 Hyperosmolality and hypernatremia; N39.0 Urinary tract infection, site not specified; M62.82 Rhabdomyolysis; R47.01 Aphasia; I69.354 Hemiplegia and hemiparesis following cerebral infarction affecting left non-dominant side; D64.9 Anemia, unspecified; E78.5 Hyperlipidemia, unspecified; E86.1 Hypovolemia; E87.5 Hyperkalemia; H54.62 Unqualified visual loss, left eye, normal vision right eye; E11.22 Type 2 diabetes mellitus with diabetic chronic kidney disease; E86.0 Dehydration; J44.9 Chronic obstructive pulmonary disease, unspecified; K59.00 Constipation, unspecified; N18.9 Chronic kidney disease, unspecified; I12.9 Hypertensive chronic kidney disease with stage 1 through stage 4 chronic kidney disease, or unspecified chronic kidney disease; R47.1 Dysarthria and anarthria; R79.89 Other specified abnormal findings of blood chemistry; F10.20 Alcohol dependence, uncomplicated; R13.10 Dysphagia, unspecified; Z74.01 Bed confinement status; Z93.1 Gastrostomy status; Z82.49 Family history of ischemic heart disease and other diseases of the circulatory system; Z79.899 Other long term (current) drug therapy; Z79.82 Long term (current) use of aspirin; I69.391 Dysphagia following cerebral infarction; I69.320 Aphasia following cerebral infarction; Z68.26 Body mass index [BMI] 26.0-26.9, adult
CPT/HCPCS: 31500; 36415; 36569; 36600; 51702; 70450; 71045; 76937; 78580; 80048; 80053; 80061; 80202; 81003; 82375; 82550; 82553; 82805; 82962; 83605; 83735; 83880; 84100; 84134; 84478; 84484; 85025; 85379; 85610; 85730; 87040; 87070; 87086; 87106; 87493; 87804; 92523; 93005; 93970; 94002; 94003; 94640; 94667; 96365; 96367; 97112; 97163; 97167; 97530; 99291; A4216; A6261; C1725; C9113; J1650; J1815; J2543; J2704; J3370; J3490; J7030; J7040; J7042; J7050; J7060; J7070; J7608; J7611; J7620; A4315

== ENCOUNTER 2018-05-30 19:51 | Inpatient (IN) | payer MEDICARE ==
[~2018-05-30] VITALS: Ht 175.3 cm; Wt 98.4 kg
[2018-05-30] MEDS: BUDESONIDE 0.5MG/2ML NEB HHN SCH (21:58)
[2018-05-30 22:55] LABS: BASOPHILS % 0.5 % (0.0-2.0); EOSINOPHILS % 0.4 % (0.0-5.0); HEMATOCRIT. 25.2 % (42.0-52.0); HEMOGLOBIN. 7.9 g/dL (14.0-18.0); LYMPHOCYTES % 11.4 % (20.0-50.0); MEAN CORPUSCULAR HEMOGLOBIN 26.9 pg (28.0-32.0); MEAN CORPUSCULAR VOLUME 85.5 fL (80.0-94.0); MEAN PLATELET VOLUME 9.7 fl (7.4-10.4); MONOCYTES % 6.3 % (2.0-8.0); NEUTROPHILS % 81.4 % (40.0-76.0); PLATELET 334 x1000/uL (130-400); RED BLOOD CELL COUNT 2.95 mill/uL (4.7-6.1)
[2018-05-30 23:00] LABS: CHLORIDE 99 mEq/L (98-107)
[2018-05-30 23:01] LABS: INR 1.2; PROTHROMBIN TIME 12.1 sec (9.4-11.6)
[2018-05-30 23:20] LABS: C REACTIVE PROTEIN QUANT > 190.0 mg/L (0.0-3.0)
[2018-05-30] MEDS ORDERED: VANCOMYCIN 1 G PREMIX 200 ML IV SCH (23:30)
[2018-05-30] MEDS ORDERED: SODIUM CHLORIDE 0.9% 1000ML BAG (SEPSIS BOLUS) IV NR (23:30)
[2018-05-30] MEDS ORDERED: CEFEPIME 1,000 MG in DEXTROSE 5% WATER 50 ML IV NR (23:31)
[2018-05-31] MEDS: OFLOXACIN 0.3% OPHTH SOLN 5ML LEFTEYE SCH ×2 (00:30→18:02)
[2018-05-31 02:15] LABS: CLARITY URINE CLEAR (CLEAR); COLOR URINE YELLOW (YELLOW); KETONES URINE NEGATIVE (NEGATIVE); LEUKOCYTE ESTERASE URINE 1+ (NEGATIVE); NITRITE URINE NEGATIVE (NEGATIVE); OCCULT BLOOD URINE NEGATIVE (NEGATIVE); PH URINE 5.5 (4.5-8.0); PROTEIN URINE TRACE (NEGATIVE); SPECIFIC GRAVITY URINE 1.021 (1.005-1.030)
[2018-05-31 08:20] VITALS: BP 155/83
[2018-05-31] MEDS ORDERED: IPRATROPIUM/ALBUTEROL 0.5-3(2.5)MG/3ML NEB HHN PRN ×2 (11:45→17:45)
[2018-05-31 12:00] VITALS: BP 157/81
[2018-05-31] MEDS ORDERED: ENOXAPARIN 40MG/0.4ML SYR SUBCUT SCH (12:00)
[2018-05-31] MEDS: HYDRALAZINE HCL 25MG TABLET GT SCH ×2 (12:27→21:27)
[2018-05-31] MEDS ORDERED: HYDROCODONE/ACETAMINOPHEN 5/325MG TABLET PO PRN (15:15)
[2018-05-31] MEDS ORDERED: CLONIDINE 0.1MG TABLET GT PRN (15:15)
[2018-05-31] MEDS: VANCOMYCIN 1 G PREMIX 200 ML IV SCH ×2 (15:38→21:27)
[2018-05-31 16:00] VITALS: BP 177/90
[2018-05-31] MEDS: AMLODIPINE 2.5MG TABLET PO SCH ×2 (18:02→21:28)
[2018-05-31] MEDS: SODIUM CHL 0.45% + KCL 20MEQ/L 1,000 ML IV SCH (18:46)
[2018-05-31 20:42] VITALS: BP 143/74
[2018-05-31] MEDS: IPRATROPIUM/ALBUTEROL 0.5-3(2.5)MG/3ML NEB HHN SCH (21:58)
[2018-06-01 00:30] VITALS: BP 136/76
[2018-06-01] MEDS: IPRATROPIUM/ALBUTEROL 0.5-3(2.5)MG/3ML NEB HHN SCH ×3 (01:20→21:13)
[2018-06-01 04:39] VITALS: BP 136/76
[2018-06-01] MEDS: SODIUM CHL 0.45% + KCL 20MEQ/L 1,000 ML IV SCH ×2 (06:20→21:28)
[2018-06-01] MEDS: HYDRALAZINE HCL 25MG TABLET GT SCH ×3 (06:21→21:28)
[2018-06-01 06:28] LABS: BASOPHILS % 0.1 % (0.0-2.0); EOSINOPHILS % 0.7 % (0.0-5.0); HEMATOCRIT. 24.1 % (42.0-52.0); HEMOGLOBIN. 7.7 g/dL (14.0-18.0); LYMPHOCYTES % 13.7 % (20.0-50.0); MEAN CORPUSCULAR HEMOGLOBIN 27.2 pg (28.0-32.0); MEAN CORPUSCULAR VOLUME 85.2 fL (80.0-94.0); MEAN PLATELET VOLUME 9.2 fl (7.4-10.4); MONOCYTES % 8.8 % (2.0-8.0); NEUTROPHILS % 76.7 % (40.0-76.0); PLATELET 332 x1000/uL (130-400); RED BLOOD CELL COUNT 2.83 mill/uL (4.7-6.1); RED CELL DISTRIBUTION WIDTH 16.1 % (11.6-14.6)
[2018-06-01 07:04] LABS: CHLORIDE 104 mEq/L (98-107)
[2018-06-01 07:34] LABS: LDL CHOLESTEROL 64 mg/dL (5-100)
[2018-06-01 07:35] LABS: CREATINE KINASE 343 IU/L (39-308); HDL CHOLESTEROL 35 mg/dL (40-59)
[2018-06-01 07:36] LABS: TOTAL IRON BINDING CAPACITY 151 ug/dL (250-450)
[2018-06-01 07:39] LABS: CREATINE KINASE MB FRACTION < 0.5 ng/mL (0.5-3.6)
[2018-06-01 08:00] VITALS: BP 153/78
[2018-06-01] MEDS: BUDESONIDE 0.5MG/2ML NEB HHN SCH ×2 (09:02→21:13)
[2018-06-01] MEDS: ASCORBIC ACID 500 MG TABLET GT SCH (09:03)
[2018-06-01] MEDS: OMEPRAZOLE 20MG CAPSULE EXTENDED RELEASE PO SCH (09:03)
[2018-06-01] MEDS: MULTIVITAMINS,THER W-MINERALS TABLET GT SCH (09:04)
[2018-06-01] MEDS: AMLODIPINE 2.5MG TABLET PO SCH ×2 (09:04→21:27)
[2018-06-01] MEDS: OFLOXACIN 0.3% OPHTH SOLN 5ML LEFTEYE SCH ×4 (09:04→21:26)
[2018-06-01] MEDS: VANCOMYCIN 1 G PREMIX 200 ML IV SCH ×2 (09:04→21:27)
[2018-06-01] MEDS: ZINC SULFATE 220 MG ( 50 ) CAPSULE GT SCH (09:07)
[2018-06-01] MEDS: ACETAMINOPHEN 650MG/20.3ML UDC GT PRN (09:07)
[2018-06-01] MEDS ORDERED: POTASSIUM CHLORIDE 20MEQ TABLET SR PO NR (11:30)
[2018-06-01 12:00] VITALS: BP 123/72
[2018-06-01] MEDS: IRON SUCROSE COMPLEX 100 MG/5 ML ML IV SCH (12:52)
[2018-06-01 16:00] VITALS: BP 153/82
[2018-06-01] MEDS: FERROUS SULFATE 325MG TABLET PO SCH (17:41)
[2018-06-01] MEDS: PIPERACILLIN/TAZOBACTAM 3.375 G in DEXT 5% WATER 100 ML IV SCH (17:41)
[2018-06-01 20:00] VITALS: BP 143/80
[2018-06-02] VITALS: BP 134/85
[2018-06-02] MEDS: PIPERACILLIN/TAZOBACTAM 3.375 G in DEXT 5% WATER 100 ML IV SCH ×3 (00:51→13:31)
[2018-06-02] MEDS: IPRATROPIUM/ALBUTEROL 0.5-3(2.5)MG/3ML NEB HHN SCH ×4 (01:02→21:55)
[2018-06-02 04:00] VITALS: BP 145/83
[2018-06-02] MEDS: HYDRALAZINE HCL 25MG TABLET GT SCH ×3 (06:12→22:27)
[2018-06-02 06:57] LABS: CHLORIDE 104 mEq/L (98-107)
[2018-06-02 07:00] LABS: BASOPHILS % 0.2 % (0.0-2.0); EOSINOPHILS % 0.9 % (0.0-5.0); HEMATOCRIT. 25.4 % (42.0-52.0); MEAN CORPUSCULAR HEMOGLOBIN 26.9 pg (28.0-32.0); MEAN CORPUSCULAR VOLUME 85.8 fL (80.0-94.0); MEAN PLATELET VOLUME 9.2 fl (7.4-10.4); MONOCYTES % 7.6 % (2.0-8.0); NEUTROPHILS % 78.3 % (40.0-76.0); PLATELET 356 x1000/uL (130-400); RED BLOOD CELL COUNT 2.96 mill/uL (4.7-6.1); RED CELL DISTRIBUTION WIDTH 16.3 % (11.6-14.6)
[2018-06-02 08:00] VITALS: BP 128/71
[2018-06-02] MEDS: BUDESONIDE 0.5MG/2ML NEB HHN SCH ×2 (08:34→21:54)
[2018-06-02] MEDS: ZINC SULFATE 220 MG ( 50 ) CAPSULE GT SCH (09:02)
[2018-06-02] MEDS: MULTIVITAMINS,THER W-MINERALS TABLET GT SCH (09:02)
[2018-06-02] MEDS: POTASSIUM CHLORIDE 20MEQ TABLET SR PO SCH (09:02)
[2018-06-02] MEDS: FERROUS SULFATE 325MG TABLET PO SCH ×3 (09:02→17:51)
[2018-06-02] MEDS: OMEPRAZOLE 20MG CAPSULE EXTENDED RELEASE PO SCH (09:02)
[2018-06-02] MEDS: AMLODIPINE 2.5MG TABLET PO SCH ×2 (09:02→22:28)
[2018-06-02] MEDS: ASCORBIC ACID 500 MG TABLET GT SCH (09:03)
[2018-06-02] MEDS: VANCOMYCIN 1 G PREMIX 200 ML IV SCH (09:04)
[2018-06-02] MEDS: OFLOXACIN 0.3% OPHTH SOLN 5ML LEFTEYE SCH ×4 (09:07→22:38)
[2018-06-02] MEDS ORDERED: IOHEXOL-350 100 ML BOTTLE ONE (11:26)
[2018-06-02 12:00] VITALS: BP 161/86
[2018-06-02] MEDS: ACETAMINOPHEN 650MG/20.3ML UDC GT PRN (13:24)
[2018-06-02] MEDS: IRON SUCROSE COMPLEX 100 MG/5 ML ML IV SCH (13:27)
[2018-06-02 16:00] VITALS: BP 142/65
[2018-06-02] MEDS: PIPERACILLIN/TAZ 3.375G PREMIX 50 ML IV SCH (17:51)
[2018-06-02] MEDS: SODIUM CHL 0.45% + KCL 20MEQ/L 1,000 ML IV SCH ×2 (18:14→22:29)
[2018-06-02 20:04] VITALS: BP 155/83
[2018-06-02] MEDS: VANCOMYCIN 1250MG in DEXTROSE 5% WATER 250ML IV SCH (22:07)
[2018-06-03 00:01] VITALS: BP 153/72
[2018-06-03] MEDS: PIPERACILLIN/TAZ 3.375G PREMIX 50 ML IV SCH ×4 (00:28→17:39)
[2018-06-03] MEDS: IPRATROPIUM/ALBUTEROL 0.5-3(2.5)MG/3ML NEB HHN SCH ×4 (02:16→21:17)
[2018-06-03 04:00] VITALS: BP 160/67
[2018-06-03 05:47] LABS: BASOPHILS % 0.2 % (0.0-2.0); EOSINOPHILS % 0.8 % (0.0-5.0); HEMATOCRIT. 26.9 % (42.0-52.0); HEMOGLOBIN. 8.4 g/dL (14.0-18.0); LYMPHOCYTES % 11.1 % (20.0-50.0); MEAN CORPUSCULAR HEMOGLOBIN 26.8 pg (28.0-32.0); MEAN CORPUSCULAR VOLUME 85.6 fL (80.0-94.0); MEAN PLATELET VOLUME 8.9 fl (7.4-10.4); MONOCYTES % 6.9 % (2.0-8.0); PLATELET 394 x1000/uL (130-400); RED BLOOD CELL COUNT 3.14 mill/uL (4.7-6.1); RED CELL DISTRIBUTION WIDTH 16.4 % (11.6-14.6)
[2018-06-03] MEDS: HYDRALAZINE HCL 25MG TABLET GT SCH ×3 (05:54→21:49)
[2018-06-03 06:20] LABS: CHLORIDE 105 mEq/L (98-107)
[2018-06-03 08:00] VITALS: BP 144/67
[2018-06-03] MEDS: BUDESONIDE 0.5MG/2ML NEB HHN SCH (08:26)
[2018-06-03] MEDS: VANCOMYCIN 1250MG in DEXTROSE 5% WATER 250ML IV SCH ×2 (08:48→20:05)
[2018-06-03] MEDS: FERROUS SULFATE 325MG TABLET PO SCH ×3 (08:48→17:38)
[2018-06-03] MEDS: ZINC SULFATE 220 MG ( 50 ) CAPSULE GT SCH (08:48)
[2018-06-03] MEDS: FAMOTIDINE 20MG TABLET PO SCH ×2 (08:48→17:38)
[2018-06-03] MEDS: POTASSIUM CHLORIDE 20MEQ TABLET SR PO SCH (08:49)
[2018-06-03] MEDS: ASCORBIC ACID 500 MG TABLET GT SCH (08:49)
[2018-06-03] MEDS: OFLOXACIN 0.3% OPHTH SOLN 5ML LEFTEYE SCH ×4 (08:49→20:05)
[2018-06-03] MEDS: MULTIVITAMINS,THER W-MINERALS TABLET GT SCH (08:49)
[2018-06-03] MEDS: AMLODIPINE 2.5MG TABLET PO SCH ×2 (08:49→20:02)
[2018-06-03] MEDS: SODIUM CHL 0.45% + KCL 20MEQ/L 1,000 ML IV SCH (11:56)
[2018-06-03 12:00] VITALS: BP 122/66
[2018-06-03] MEDS: GABAPENTIN 400MG CAPSULE GT SCH ×2 (13:32→21:49)
[2018-06-03] MEDS: IRON SUCROSE COMPLEX 100 MG/5 ML ML IV SCH (13:52)
[2018-06-03 20:11] VITALS: BP 129/73
[2018-06-04 00:26] VITALS: BP 133/74
[2018-06-04] MEDS: PIPERACILLIN/TAZ 3.375G PREMIX 50 ML IV SCH ×5 (00:32→23:12)
[2018-06-04] MEDS: ACETAMINOPHEN 650MG/20.3ML UDC GT PRN ×2 (00:32→12:25)
[2018-06-04] MEDS: BUDESONIDE 0.5MG/2ML NEB HHN SCH (02:00)
[2018-06-04 04:00] VITALS: BP 108/56
[2018-06-04] MEDS: HYDRALAZINE HCL 25MG TABLET GT SCH ×3 (05:03→21:03)
[2018-06-04] MEDS: GABAPENTIN 400MG CAPSULE GT SCH ×3 (05:24→21:03)
[2018-06-04 07:29] LABS: EOSINOPHILS % 1.7 % (0.0-5.0); HEMATOCRIT. 24.2 % (42.0-52.0); HEMOGLOBIN. 7.5 g/dL (14.0-18.0); LYMPHOCYTES % 15.4 % (20.0-50.0); MEAN CORPUSCULAR HEMOGLOBIN 26.9 pg (28.0-32.0); MEAN CORPUSCULAR VOLUME 86.9 fL (80.0-94.0); MEAN PLATELET VOLUME 8.6 fl (7.4-10.4); MONOCYTES % 5.8 % (2.0-8.0); NEUTROPHILS % 76.1 % (40.0-76.0); PLATELET 413 x1000/uL (130-400); RED BLOOD CELL COUNT 2.79 mill/uL (4.7-6.1); RED CELL DISTRIBUTION WIDTH 16.5 % (11.6-14.6)
[2018-06-04 07:41] LABS: CHLORIDE 105 mEq/L (98-107)
[2018-06-04 08:00] VITALS: BP 118/70
[2018-06-04] MEDS: IPRATROPIUM/ALBUTEROL 0.5-3(2.5)MG/3ML NEB HHN SCH ×2 (08:08→21:16)
[2018-06-04] MEDS: VANCOMYCIN 1250MG in DEXTROSE 5% WATER 250ML IV SCH (08:51)
[2018-06-04] MEDS: ZINC SULFATE 220 MG ( 50 ) CAPSULE GT SCH (08:51)
[2018-06-04] MEDS: FERROUS SULFATE 325MG TABLET PO SCH ×3 (08:51→17:32)
[2018-06-04] MEDS: MULTIVITAMINS,THER W-MINERALS TABLET GT SCH (08:51)
[2018-06-04] MEDS: FAMOTIDINE 20MG TABLET PO SCH (08:51)
[2018-06-04] MEDS: POTASSIUM CHLORIDE 20MEQ TABLET SR PO SCH (08:52)
[2018-06-04] MEDS: ASCORBIC ACID 500 MG TABLET GT SCH (08:52)
[2018-06-04] MEDS: AMLODIPINE 2.5MG TABLET PO SCH ×2 (09:00→21:03)
[2018-06-04] MEDS: OFLOXACIN 0.3% OPHTH SOLN 5ML LEFTEYE SCH ×4 (09:40→21:02)
[2018-06-04 12:00] VITALS: BP 152/78
[2018-06-04] MEDS: SODIUM CHL 0.45% + KCL 20MEQ/L 1,000 ML IV SCH (13:51)
[2018-06-04] MEDS: PANTOPRAZOLE SODIUM 40 MG/VIAL IV SCH (14:36)
[2018-06-04 15:19] LABS: INR 1.1; PARTIAL THROMBOPLASTIN TIME 29.6 sec (23.4-31.0); PROTHROMBIN TIME 11.8 sec (9.4-11.6)
[2018-06-04 15:20] LABS: HEMOGLOBIN 7.4 g/dL (14.0-18.0)
[2018-06-04 15:36] LABS: FOLIC ACID (FOLATE) SERUM >20 ng/mL ng/mL (>5.38)
[2018-06-04 15:48] LABS: VITAMIN B12 SERUM 932 pg/mL (211-911)
[2018-06-04 16:00] VITALS: BP 125/76
[2018-06-04 20:00] VITALS: BP 157/77
[2018-06-04] MEDS: VANCOMYCIN 1 G PREMIX 200 ML IV SCH (21:04)
[2018-06-05] VITALS: BP 132/70
[2018-06-05] MEDS: IPRATROPIUM/ALBUTEROL 0.5-3(2.5)MG/3ML NEB HHN SCH ×4 (01:30→20:35)
[2018-06-05 04:00] VITALS: BP 145/76
[2018-06-05] MEDS: GABAPENTIN 400MG CAPSULE GT SCH ×2 (06:39→14:13)
[2018-06-05] MEDS: PIPERACILLIN/TAZ 3.375G PREMIX 50 ML IV SCH ×3 (06:39→23:59)
[2018-06-05] MEDS: HYDRALAZINE HCL 25MG TABLET GT SCH ×3 (06:39→22:08)
[2018-06-05] MEDS: ACETAMINOPHEN 650MG/20.3ML UDC GT PRN (06:43)
[2018-06-05 07:07] LABS: BASOPHILS % 0.2 % (0.0-2.0); EOSINOPHILS % 1.1 % (0.0-5.0); HEMATOCRIT. 26.9 % (42.0-52.0); HEMOGLOBIN. 8.4 g/dL (14.0-18.0); MEAN CORPUSCULAR HEMOGLOBIN 27.1 pg (28.0-32.0); MEAN CORPUSCULAR VOLUME 86.3 fL (80.0-94.0); MEAN PLATELET VOLUME 8.6 fl (7.4-10.4); MONOCYTES % 4.9 % (2.0-8.0); NEUTROPHILS % 77.8 % (40.0-76.0); PLATELET 461 x1000/uL (130-400); RED BLOOD CELL COUNT 3.12 mill/uL (4.7-6.1); RED CELL DISTRIBUTION WIDTH 16.8 % (11.6-14.6)
[2018-06-05 08:00] VITALS: BP 130/67
[2018-06-05 09:26] LABS: CHLORIDE 105 mEq/L (98-107)
[2018-06-05] MEDS: ZINC SULFATE 220 MG ( 50 ) CAPSULE GT SCH (09:37)
[2018-06-05] MEDS: ASCORBIC ACID 500 MG TABLET GT SCH (09:37)
[2018-06-05] MEDS: MULTIVITAMINS,THER W-MINERALS TABLET GT SCH (09:37)
[2018-06-05] MEDS: POTASSIUM CHLORIDE 20MEQ TABLET SR PO SCH (09:37)
[2018-06-05] MEDS: PANTOPRAZOLE SODIUM 40 MG/VIAL IV SCH (09:37)
[2018-06-05] MEDS: FERROUS SULFATE 325MG TABLET PO SCH ×3 (09:37→18:14)
[2018-06-05] MEDS: AMLODIPINE 2.5MG TABLET PO SCH ×2 (09:38→22:08)
[2018-06-05] MEDS: VANCOMYCIN 1 G PREMIX 200 ML IV SCH ×2 (09:38→22:09)
[2018-06-05] MEDS: OFLOXACIN 0.3% OPHTH SOLN 5ML LEFTEYE SCH ×4 (09:38→22:08)
[2018-06-05] MEDS ORDERED: SODIUM CHLORIDE 0.45% 1,000 ML IV SCH (11:00)
[2018-06-05] MEDS ORDERED: IODIXANOL 320MG/ML 100 ML BOTTLE IV ONE (11:15)
[2018-06-05] MEDS ORDERED: LIDOCAINE HCL 1% 20ML VIAL (Pyxis) INJ ONE (11:15)
[2018-06-05 12:00] VITALS: BP 112/66
[2018-06-05] MEDS: SODIUM CHL 0.45% + KCL 20MEQ/L 1,000 ML IV SCH (15:10)
[2018-06-05] MEDS ORDERED: GABAPENTIN 400MG CAPSULE GT SCH (15:15)
[2018-06-05 16:00] VITALS: BP 134/60
[2018-06-05 20:00] VITALS: BP 134/45
[2018-06-06] VITALS: BP 121/55
[2018-06-06] MEDS: IPRATROPIUM/ALBUTEROL 0.5-3(2.5)MG/3ML NEB HHN SCH ×4 (02:21→21:33)
[2018-06-06 04:00] VITALS: BP 132/80
[2018-06-06] MEDS: GABAPENTIN 300MG CAPSULE GT SCH ×3 (05:56→21:48)
[2018-06-06] MEDS: HYDRALAZINE HCL 25MG TABLET GT SCH ×3 (05:57→21:48)
[2018-06-06] MEDS: PIPERACILLIN/TAZ 3.375G PREMIX 50 ML IV SCH ×3 (05:57→18:08)
[2018-06-06 08:00] VITALS: BP 121/55
[2018-06-06 08:21] LABS: BASOPHILS % 0.3 % (0.0-2.0); EOSINOPHILS % 0.9 % (0.0-5.0); HEMATOCRIT. 24.7 % (42.0-52.0); HEMOGLOBIN. 7.6 g/dL (14.0-18.0); LYMPHOCYTES % 14.8 % (20.0-50.0); MEAN CORPUSCULAR HEMOGLOBIN 26.6 pg (28.0-32.0); MEAN CORPUSCULAR VOLUME 86.2 fL (80.0-94.0); MEAN PLATELET VOLUME 8.5 fl (7.4-10.4); MONOCYTES % 6.5 % (2.0-8.0); NEUTROPHILS % 77.5 % (40.0-76.0); PLATELET 437 x1000/uL (130-400); RED BLOOD CELL COUNT 2.86 mill/uL (4.7-6.1); RED CELL DISTRIBUTION WIDTH 16.6 % (11.6-14.6)
[2018-06-06] MEDS: VANCOMYCIN 1 G PREMIX 200 ML IV SCH ×2 (09:05→21:47)
[2018-06-06] MEDS: ZINC SULFATE 220 MG ( 50 ) CAPSULE GT SCH (09:05)
[2018-06-06] MEDS: AMLODIPINE 2.5MG TABLET PO SCH ×2 (09:06→21:48)
[2018-06-06] MEDS: PANTOPRAZOLE SODIUM 40 MG/VIAL IV SCH (09:06)
[2018-06-06] MEDS: ASCORBIC ACID 500 MG TABLET GT SCH (09:06)
[2018-06-06] MEDS: MULTIVITAMINS,THER W-MINERALS TABLET GT SCH (09:06)
[2018-06-06] MEDS: OFLOXACIN 0.3% OPHTH SOLN 5ML LEFTEYE SCH ×4 (09:20→21:48)
[2018-06-06 12:00] VITALS: BP 120/74
[2018-06-06 12:03] LABS: CHLORIDE 105 mEq/L (98-107)
[2018-06-06] MEDS: FERROUS SULFATE 300MG/5ML UDC PO SCH ×3 (13:07→18:09)
[2018-06-06] MEDS: POTASSIUM CHLORIDE 20MEQ/PACKET PO SCH (13:08)
[2018-06-06] MEDS: ACETAMINOPHEN 650MG/20.3ML UDC GT PRN (13:08)
[2018-06-06] MEDS: SODIUM CHL 0.45% + KCL 20MEQ/L 1,000 ML IV SCH (15:01)
[2018-06-06 16:00] VITALS: BP 107/62
[2018-06-06 20:00] VITALS: BP 145/78
[2018-06-07] VITALS: BP 125/75
[2018-06-07] MEDS: PIPERACILLIN/TAZ 3.375G PREMIX 50 ML IV SCH ×4 (00:01→18:00)
[2018-06-07] MEDS: IPRATROPIUM/ALBUTEROL 0.5-3(2.5)MG/3ML NEB HHN SCH ×4 (01:19→20:30)
[2018-06-07 04:00] VITALS: BP 112/68
[2018-06-07] MEDS: HYDRALAZINE HCL 25MG TABLET GT SCH ×3 (05:22→20:54)
[2018-06-07] MEDS: GABAPENTIN 300MG CAPSULE GT SCH ×3 (05:27→20:53)
[2018-06-07 06:44] LABS: BASOPHILS % 0.3 % (0.0-2.0); HEMATOCRIT. 24.3 % (42.0-52.0); HEMOGLOBIN. 7.6 g/dL (14.0-18.0); LYMPHOCYTES % 15.7 % (20.0-50.0); MEAN CORPUSCULAR HEMOGLOBIN 27.2 pg (28.0-32.0); MEAN CORPUSCULAR VOLUME 86.6 fL (80.0-94.0); MEAN PLATELET VOLUME 8.4 fl (7.4-10.4); MONOCYTES % 6.2 % (2.0-8.0); NEUTROPHILS % 76.8 % (40.0-76.0); PLATELET 429 x1000/uL (130-400); RED BLOOD CELL COUNT 2.81 mill/uL (4.7-6.1); RED CELL DISTRIBUTION WIDTH 16.8 % (11.6-14.6)
[2018-06-07 07:10] LABS: CHLORIDE 107 mEq/L (98-107)
[2018-06-07 08:00] VITALS: BP 118/56
[2018-06-07] MEDS: FERROUS SULFATE 300MG/5ML UDC PO SCH ×3 (08:10→18:10)
[2018-06-07] MEDS: ZINC SULFATE 220 MG ( 50 ) CAPSULE GT SCH (08:19)
[2018-06-07] MEDS: MULTIVITAMINS,THER W-MINERALS TABLET GT SCH (08:20)
[2018-06-07] MEDS: AMLODIPINE 2.5MG TABLET PO SCH ×3 (08:21→20:54)
[2018-06-07] MEDS: POTASSIUM CHLORIDE 20MEQ/PACKET PO SCH (08:21)
[2018-06-07] MEDS: ASCORBIC ACID 500 MG TABLET GT SCH (08:21)
[2018-06-07] MEDS: PANTOPRAZOLE SODIUM 40 MG/VIAL IV SCH (09:28)
[2018-06-07] MEDS: OFLOXACIN 0.3% OPHTH SOLN 5ML LEFTEYE SCH ×3 (09:28→17:00)
[2018-06-07] MEDS: VANCOMYCIN 1 G PREMIX 200 ML IV SCH ×2 (09:28→20:52)
[2018-06-07 12:00] VITALS: BP 140/65
[2018-06-07] MEDS ORDERED: LIDOCAINE HCL/PF 1% 10 MG/ML 5ML VIAL ONE (15:53)
[2018-06-07] MEDS ORDERED: BUPIVACAINE HCL/PF 0.25% (2.5MG/ML) 10ML ONE ×2 (15:54→15:55)
[2018-06-07 16:00] VITALS: BP 139/66
[2018-06-07] MEDS ORDERED: GENTAMICIN SULF 40MG/ML 2ML VIAL ONE (16:00)
[2018-06-07] MEDS ORDERED: BACITRACIN ZINC 15GM TUBE TOP ONE (16:00)
[2018-06-07] MEDS ORDERED: BACITRACIN 50,000 UNITS/VIAL ONE (16:01)
[2018-06-07] MEDS ORDERED: FENTANYL CITRATE/PF 50MCG/ML 2ML VIAL ONE (16:34)
[2018-06-07] MEDS ORDERED: MIDAZOLAM HCL 2 MG/2 ML VIAL ONE (16:34)
[2018-06-07 20:00] VITALS: BP 159/82
[2018-06-07] MEDS: SODIUM CHL 0.45% + KCL 20MEQ/L 1,000 ML IV SCH (20:51)
[2018-06-08] VITALS: BP 133/69
[2018-06-08] MEDS: PIPERACILLIN/TAZ 3.375G PREMIX 50 ML IV SCH ×5 (00:46→18:20)
[2018-06-08] MEDS: IPRATROPIUM/ALBUTEROL 0.5-3(2.5)MG/3ML NEB HHN SCH ×4 (00:53→20:16)
[2018-06-08 04:00] VITALS: BP 113/69
[2018-06-08] MEDS: HYDRALAZINE HCL 25MG TABLET GT SCH ×3 (04:57→22:05)
[2018-06-08] MEDS: GABAPENTIN 300MG CAPSULE GT SCH ×3 (06:18→22:05)
[2018-06-08 06:34] LABS: BASOPHILS % 0.3 % (0.0-2.0); EOSINOPHILS % 0.9 % (0.0-5.0); HEMATOCRIT. 24.3 % (42.0-52.0); HEMOGLOBIN. 7.5 g/dL (14.0-18.0); LYMPHOCYTES % 13.3 % (20.0-50.0); MEAN CORPUSCULAR HEMOGLOBIN 26.8 pg (28.0-32.0); MEAN CORPUSCULAR VOLUME 86.1 fL (80.0-94.0); MEAN PLATELET VOLUME 8.4 fl (7.4-10.4); MONOCYTES % 7.4 % (2.0-8.0); NEUTROPHILS % 78.1 % (40.0-76.0); PLATELET 441 x1000/uL (130-400); RED BLOOD CELL COUNT 2.82 mill/uL (4.7-6.1); RED CELL DISTRIBUTION WIDTH 16.9 % (11.6-14.6)
[2018-06-08 07:32] LABS: CHLORIDE 105 mEq/L (98-107)
[2018-06-08 08:00] VITALS: BP 133/64
[2018-06-08] MEDS: MULTIVITAMINS,THER W-MINERALS TABLET GT SCH (09:12)
[2018-06-08] MEDS: ASCORBIC ACID 500 MG TABLET GT SCH (09:12)
[2018-06-08] MEDS: FERROUS SULFATE 300MG/5ML UDC PO SCH ×4 (09:12→18:20)
[2018-06-08] MEDS: ZINC SULFATE 220 MG ( 50 ) CAPSULE GT SCH (09:12)
[2018-06-08] MEDS: PANTOPRAZOLE SODIUM 40 MG/VIAL IV SCH (09:13)
[2018-06-08] MEDS: AMLODIPINE 2.5MG TABLET PO SCH ×2 (09:13→20:52)
[2018-06-08] MEDS: POTASSIUM CHLORIDE 20MEQ/PACKET PO SCH (09:13)
[2018-06-08] MEDS: VANCOMYCIN 1 G PREMIX 200 ML IV SCH ×2 (09:45→20:51)
[2018-06-08 12:00] VITALS: BP 147/67
[2018-06-08 16:00] VITALS: BP 141/85
[2018-06-08 20:00] VITALS: BP 139/67
[2018-06-09] VITALS: BP 125/61
[2018-06-09] MEDS ORDERED: DEXT 5%/0.45% NACL 1000ML 1,000 ML IV SCH (00:30)
[2018-06-09] MEDS: IPRATROPIUM/ALBUTEROL 0.5-3(2.5)MG/3ML NEB HHN SCH ×3 (01:40→13:57)
[2018-06-09 04:00] VITALS: BP 144/74
[2018-06-09] MEDS: GABAPENTIN 300MG CAPSULE GT SCH ×2 (05:31→16:37)
[2018-06-09] MEDS: HYDRALAZINE HCL 25MG TABLET GT SCH ×2 (05:32→16:36)
[2018-06-09] MEDS: PIPERACILLIN/TAZ 3.375G PREMIX 50 ML IV SCH ×2 (05:37→11:44)
[2018-06-09 08:00] VITALS: BP 134/66
[2018-06-09] MEDS: MULTIVITAMINS,THER W-MINERALS TABLET GT SCH (08:34)
[2018-06-09] MEDS: ACETAMINOPHEN 650MG/20.3ML UDC GT PRN (08:34)
[2018-06-09] MEDS: ASCORBIC ACID 500 MG TABLET GT SCH (08:34)
[2018-06-09] MEDS: ZINC SULFATE 220 MG ( 50 ) CAPSULE GT SCH (08:34)
[2018-06-09] MEDS: AMLODIPINE 2.5MG TABLET PO SCH (08:35)
[2018-06-09] MEDS: VANCOMYCIN 1 G PREMIX 200 ML IV SCH (08:41)
[2018-06-09] MEDS: POTASSIUM CHLORIDE 20MEQ/PACKET PO SCH (08:42)
[2018-06-09] MEDS ORDERED: FAMOTIDINE 20MG/2ML VIAL IV SCH (09:00)
[2018-06-09 10:38] VITALS: BP 134/66
[2018-06-09 12:00] VITALS: BP 149/79
[2018-06-09 16:00] VITALS: BP 113/64
[2018-06-09] MEDS: FERROUS SULFATE 300MG/5ML UDC PO SCH (16:37)
== END 2018-06-09 18:51 | DRG 853 ==
LOC: ER 19:51 → 7WST 05-31 00:21 → ENRESERV 05-31 07:18 → 7WST 05-31 09:07
PROVIDERS: ADMIT Internal Medicine; ATTEND Internal Medicine
PROC: 0Y6Y0Z0 Detachment at Left 5th Toe, Complete, Open Approach (ICD-10-PCS; 2018-06-07)
PROC: 0Y6W0Z0 Detachment at Left 4th Toe, Complete, Open Approach (ICD-10-PCS; principal; 2018-06-07 16:30)
DX: A41.9 Sepsis, unspecified organism (principal); L89.154 Pressure ulcer of sacral region, stage 4; E43 Unspecified severe protein-calorie malnutrition; J96.10 Chronic respiratory failure, unspecified whether with hypoxia or hypercapnia; E11.52 Type 2 diabetes mellitus with diabetic peripheral angiopathy with gangrene; K94.23 Gastrostomy malfunction; M86.8X7 Other osteomyelitis, ankle and foot; E11.621 Type 2 diabetes mellitus with foot ulcer; E86.0 Dehydration; D50.9 Iron deficiency anemia, unspecified; D63.8 Anemia in other chronic diseases classified elsewhere; E78.5 Hyperlipidemia, unspecified; G40.909 Epilepsy, unspecified, not intractable, without status epilepticus; H10.9 Unspecified conjunctivitis; L97.529 Non-pressure chronic ulcer of other part of left foot with unspecified severity; H54.62 Unqualified visual loss, left eye, normal vision right eye; E11.40 Type 2 diabetes mellitus with diabetic neuropathy, unspecified; L89.899 Pressure ulcer of other site, unspecified stage; I10 Essential (primary) hypertension; I69.320 Aphasia following cerebral infarction; I70.202 Unspecified atherosclerosis of native arteries of extremities, left leg; J44.9 Chronic obstructive pulmonary disease, unspecified; R13.10 Dysphagia, unspecified; E11.69 Type 2 diabetes mellitus with other specified complication; M24.562 Contracture, left knee; Z79.899 Other long term (current) drug therapy; Z87.891 Personal history of nicotine dependence; Z93.0 Tracheostomy status; Z74.01 Bed confinement status; Z79.82 Long term (current) use of aspirin; I69.391 Dysphagia following cerebral infarction; Z68.32 Body mass index [BMI] 32.0-32.9, adult
CPT/HCPCS: 36415; 71045; 73630; 75635; 80048; 80053; 80061; 80202; 81003; 82270; 82550; 82553; 82607; 82746; 82962; 83540; 83550; 83605; 83735; 83880; 84100; 84443; 84484; 85014; 85018; 85025; 85044; 85610; 85651; 85730; 86140; 86850; 86900; 87040; 87077; 87086; 87186; 88305; 88311; 93005; 93306; 93923; 94640; 96361; 96365; 96366; 96367; 99291; C9113; J0692; J1580; J1644; J1650; J2250; J2543; J3010; J3370; J3480; J3490; J7040; J7050; J7060; J7620; J7626; Q9967

== ENCOUNTER 2018-09-05 17:00 | Inpatient (IN) | payer MEDICARE ==
[~2018-09-05] VITALS: Ht 175.3 cm; Wt 73.7 kg
[2018-09-05 17:52] VITALS: BP 132/76
[2018-09-05 17:56] VITALS: BP 132/76
[2018-09-05 20:00] VITALS: BP 134/70
[2018-09-05] MEDS ORDERED: DEXTROSE 50% WATER 50ML SYRINGE IV PRN (21:15)
[2018-09-05] MEDS: ATORVASTATIN CALCIUM 20MG TABLET GT SCH (21:30)
[2018-09-05] MEDS ORDERED: BISACODYL 10MG SUPP PR PRN (21:30)
[2018-09-05] MEDS ORDERED: IPRATROPIUM/ALBUTEROL 0.5-3(2.5)MG/3ML NEB HHN PRN (21:45)
[2018-09-05] MEDS ORDERED: HYDROCODONE/ACETAMINOPHEN 5/325MG TABLET GT PRN (22:00)
[2018-09-05] MEDS ORDERED: ACETAMINOPHEN 650MG/20.3ML UDC GT PRN (22:00)
[2018-09-05] MEDS ORDERED: LEVOFLOXACIN 500MG PREMIX 100 ML IV SCH (22:30)
[2018-09-05] MEDS: HYDRALAZINE HCL 50MG TABLET GT SCH (23:43)
[2018-09-06] VITALS (11 sets, daily range): BP systolic 110–169; BP diastolic 60–113
[2018-09-06] MEDS: BLOOD SUGAR DIAGNOSTIC STRIP TEST SCH ×4 (00:04→18:02)
[2018-09-06] MEDS: METHYLPREDNISOLONE SOD SUCC 125 MG/2 ML VIAL IV SCH ×3 (00:45→13:01)
[2018-09-06] MEDS: HYDRALAZINE HCL 50MG TABLET GT SCH ×3 (05:27→21:39)
[2018-09-06] MEDS: INSULIN LISPRO 100 UNITS/ML SUBCUT SCH ×4 (05:28→18:20)
[2018-09-06] MEDS: POLYVINYL ALCOHOL OPHTH DROPS 15ML BOTHEYE SCH ×3 (05:32→18:22)
[2018-09-06] MEDS: ASPIRIN 81MG TABLET GT SCH (08:16)
[2018-09-06] MEDS: VENLAFAXINE HCL 37.5MG TABLET GT SCH (08:16)
[2018-09-06] MEDS: ASCORBIC ACID 500 MG TABLET GT SCH (08:16)
[2018-09-06] MEDS: FERROUS SULFATE 300MG/5ML UDC GT SCH (08:16)
[2018-09-06] MEDS: ZINC SULFATE 220 MG ( 50 ) CAPSULE GT SCH (08:20)
[2018-09-06 10:32] LABS: HEMATOCRIT. 30.2 % (42.0-52.0); HEMOGLOBIN. 9.4 g/dL (14.0-18.0); MEAN CORPUSCULAR HEMOGLOBIN 26.3 pg (28.0-32.0); MEAN CORPUSCULAR VOLUME 84.5 fL (80.0-94.0); MEAN PLATELET VOLUME 9.6 fl (7.4-10.4); PLATELET 309 x1000/uL (130-400); RED BLOOD CELL COUNT 3.58 mill/uL (4.7-6.1); RED CELL DISTRIBUTION WIDTH 18.8 % (11.6-14.6)
[2018-09-06 11:59] LABS: T4 FREE 1.28 ng/dL (0.76-1.46)
[2018-09-06] MEDS ORDERED: SODIUM CHLORIDE 0.45% 500 ML IV ONE (14:00)
[2018-09-06] MEDS ORDERED: IPRATROPIUM/ALBUTEROL 0.5-3(2.5)MG/3ML NEB HHN PRN (16:45)
[2018-09-06] MEDS: METRONIDAZOLE 500 MG PREMIX 100 ML IV SCH (18:19)
[2018-09-06] MEDS: IPRATROPIUM/ALBUTEROL 0.5-3(2.5)MG/3ML NEB HHN SCH (20:13)
[2018-09-06 20:31] LABS: CLARITY URINE CLOUDY (CLEAR); COLOR URINE ORANGE (YELLOW); KETONES URINE NEGATIVE (NEGATIVE); LEUKOCYTE ESTERASE URINE 2+ (NEGATIVE); NITRITE URINE NEGATIVE (NEGATIVE); OCCULT BLOOD URINE 3+ (NEGATIVE); PH URINE 6.5 (4.5-8.0); PROTEIN URINE 3+ (NEGATIVE); SPECIFIC GRAVITY URINE 1.019 (1.005-1.030); UROBILINOGEN URINE 0.2 E.U./dL (0.2-1.0)
[2018-09-06 20:31] LABS: PLATELET ESTIMATE NORMAL
[2018-09-06 21:29] LABS: CREATINE KINASE 21 IU/L (39-308); CREATINE KINASE MB FRACTION < 1.0 ng/mL (0.5-3.6)
[2018-09-06] MEDS: METHYLPREDNISOLONE SOD SUCC 40 MG/ML VIAL IV SCH (21:37)
[2018-09-06] MEDS: ATORVASTATIN CALCIUM 20MG TABLET GT SCH (21:38)
[2018-09-07] VITALS (12 sets, daily range): BP systolic 94–145; BP diastolic 55–90
[2018-09-07] MEDS: IPRATROPIUM/ALBUTEROL 0.5-3(2.5)MG/3ML NEB HHN SCH ×4 (01:24→21:35)
[2018-09-07] MEDS: METRONIDAZOLE 500 MG PREMIX 100 ML IV SCH ×3 (01:27→17:15)
[2018-09-07] MEDS: BLOOD SUGAR DIAGNOSTIC STRIP TEST SCH ×4 (05:27→17:08)
[2018-09-07] MEDS: INSULIN LISPRO 100 UNITS/ML SUBCUT SCH ×4 (05:28→17:09)
[2018-09-07] MEDS: POLYVINYL ALCOHOL OPHTH DROPS 15ML BOTHEYE SCH ×4 (06:13→17:15)
[2018-09-07] MEDS: HYDRALAZINE HCL 50MG TABLET GT SCH ×3 (06:14→21:33)
[2018-09-07] MEDS ORDERED: DEXT 5%/0.45% NACL 1000ML 1,000 ML IV SCH (07:15)
[2018-09-07 07:18] LABS: HEMATOCRIT. 30.8 % (42.0-52.0); HEMOGLOBIN. 9.2 g/dL (14.0-18.0); MEAN CORPUSCULAR HEMOGLOBIN 25.9 pg (28.0-32.0); MEAN CORPUSCULAR VOLUME 86.2 fL (80.0-94.0); MEAN PLATELET VOLUME 9.5 fl (7.4-10.4); PLATELET 352 x1000/uL (130-400); RED BLOOD CELL COUNT 3.57 mill/uL (4.7-6.1); RED CELL DISTRIBUTION WIDTH 18.7 % (11.6-14.6)
[2018-09-07 07:57] LABS: CREATINE KINASE 17 IU/L (39-308); CREATINE KINASE MB FRACTION < 1.0 ng/mL (0.5-3.6)
[2018-09-07 09:16] LABS: PLATELET ESTIMATE NORMAL
[2018-09-07] MEDS: METHYLPREDNISOLONE SOD SUCC 40 MG/ML VIAL IV SCH (09:18)
[2018-09-07] MEDS: VENLAFAXINE HCL 37.5MG TABLET GT SCH (09:18)
[2018-09-07] MEDS: ASCORBIC ACID 500 MG TABLET GT SCH (09:18)
[2018-09-07] MEDS: FERROUS SULFATE 300MG/5ML UDC GT SCH (09:18)
[2018-09-07] MEDS: ASPIRIN 81MG TABLET GT SCH (09:19)
[2018-09-07] MEDS: ZINC SULFATE 220 MG ( 50 ) CAPSULE GT SCH (09:19)
[2018-09-07 17:00] LABS: CREATINE KINASE 11 IU/L (39-308); CREATINE KINASE MB FRACTION < 1.0 ng/mL (0.5-3.6)
[2018-09-07] MEDS ORDERED: LEVOFLOXACIN 500MG PREMIX 100 ML IV SCH (21:00)
[2018-09-07] MEDS: ATORVASTATIN CALCIUM 20MG TABLET GT SCH (21:33)
[2018-09-08] VITALS (13 sets, daily range): BP systolic 108–132; BP diastolic 64–79
[2018-09-08] MEDS: METRONIDAZOLE 500 MG PREMIX 100 ML IV SCH ×3 (01:20→18:40)
[2018-09-08] MEDS: IPRATROPIUM/ALBUTEROL 0.5-3(2.5)MG/3ML NEB HHN SCH ×4 (02:36→20:50)
[2018-09-08] MEDS: INSULIN LISPRO 100 UNITS/ML SUBCUT SCH ×4 (06:00→18:00)
[2018-09-08] MEDS: HYDRALAZINE HCL 50MG TABLET GT SCH ×3 (06:00→22:14)
[2018-09-08] MEDS: POLYVINYL ALCOHOL OPHTH DROPS 15ML BOTHEYE SCH ×4 (06:07→18:41)
[2018-09-08 06:08] LABS: HEMATOCRIT. 30.6 % (42.0-52.0); HEMOGLOBIN. 9.2 g/dL (14.0-18.0); LYMPHOCYTES % 8.2 % (20.0-50.0); MEAN CORPUSCULAR VOLUME 86.2 fL (80.0-94.0); MEAN PLATELET VOLUME 9.4 fl (7.4-10.4); MONOCYTES % 6.3 % (2.0-8.0); NEUTROPHILS % 85.5 % (40.0-76.0); PLATELET 350 x1000/uL (130-400); RED BLOOD CELL COUNT 3.55 mill/uL (4.7-6.1); RED CELL DISTRIBUTION WIDTH 19.1 % (11.6-14.6)
[2018-09-08] MEDS: BLOOD SUGAR DIAGNOSTIC STRIP TEST SCH ×4 (06:08→18:35)
[2018-09-08] MEDS: ASCORBIC ACID 500 MG TABLET GT SCH (09:12)
[2018-09-08] MEDS: ZINC SULFATE 220 MG ( 50 ) CAPSULE GT SCH (09:12)
[2018-09-08] MEDS: FERROUS SULFATE 300MG/5ML UDC GT SCH (09:13)
[2018-09-08] MEDS: ASPIRIN 81MG TABLET GT SCH (09:13)
[2018-09-08] MEDS: VENLAFAXINE HCL 37.5MG TABLET GT SCH (09:13)
[2018-09-08] MEDS: DEXTROSE 5% WATER 1,000 ML IV SCH ×2 (12:04→22:14)
[2018-09-08] MEDS: ATORVASTATIN CALCIUM 20MG TABLET GT SCH (21:46)
[2018-09-09] VITALS (11 sets, daily range): BP systolic 90–118; BP diastolic 52–71
[2018-09-09] MEDS: POLYVINYL ALCOHOL OPHTH DROPS 15ML BOTHEYE SCH ×5 (00:23→23:53)
[2018-09-09] MEDS: BLOOD SUGAR DIAGNOSTIC STRIP TEST SCH ×4 (00:23→17:53)
[2018-09-09] MEDS: IPRATROPIUM/ALBUTEROL 0.5-3(2.5)MG/3ML NEB HHN SCH ×4 (01:12→20:25)
[2018-09-09] MEDS: METRONIDAZOLE 500 MG PREMIX 100 ML IV SCH ×3 (02:18→18:29)
[2018-09-09] MEDS: INSULIN LISPRO 100 UNITS/ML SUBCUT SCH ×4 (06:00→17:53)
[2018-09-09] MEDS: HYDRALAZINE HCL 50MG TABLET GT SCH ×3 (06:36→21:46)
[2018-09-09 07:20] LABS: EOSINOPHILS % 0.5 % (0.0-5.0); HEMATOCRIT. 28.9 % (42.0-52.0); HEMOGLOBIN. 8.7 g/dL (14.0-18.0); LYMPHOCYTES % 11.8 % (20.0-50.0); MEAN CORPUSCULAR HEMOGLOBIN 25.9 pg (28.0-32.0); MEAN CORPUSCULAR VOLUME 86.6 fL (80.0-94.0); MEAN PLATELET VOLUME 9.4 fl (7.4-10.4); MONOCYTES % 5.6 % (2.0-8.0); NEUTROPHILS % 82.1 % (40.0-76.0); PLATELET 338 x1000/uL (130-400); RED BLOOD CELL COUNT 3.34 mill/uL (4.7-6.1)
[2018-09-09 08:03] LABS: CHLORIDE 125 mEq/L (98-107)
[2018-09-09] MEDS: ZINC SULFATE 220 MG ( 50 ) CAPSULE GT SCH (08:16)
[2018-09-09] MEDS: VENLAFAXINE HCL 37.5MG TABLET GT SCH (08:16)
[2018-09-09] MEDS: FERROUS SULFATE 300MG/5ML UDC GT SCH (08:16)
[2018-09-09] MEDS: ASPIRIN 81MG TABLET GT SCH (08:16)
[2018-09-09] MEDS: ASCORBIC ACID 500 MG TABLET GT SCH (08:16)
[2018-09-09] MEDS: DEXTROSE 5% WATER 1,000 ML IV SCH ×2 (08:18→17:32)
[2018-09-09] MEDS: MEROPENEM 1000MG in NORMAL SALINE 100ML IV SCH (17:32)
[2018-09-09] MEDS: ATORVASTATIN CALCIUM 20MG TABLET GT SCH (21:47)
[2018-09-10] VITALS (9 sets, daily range): BP systolic 103–132; BP diastolic 59–78
[2018-09-10] MEDS: DEXTROSE 5% WATER 1,000 ML IV SCH ×3 (01:17→21:59)
[2018-09-10] MEDS: IPRATROPIUM/ALBUTEROL 0.5-3(2.5)MG/3ML NEB HHN SCH ×4 (02:14→21:17)
[2018-09-10] MEDS: METRONIDAZOLE 500 MG PREMIX 100 ML IV SCH ×3 (02:21→17:03)
[2018-09-10] MEDS: HYDRALAZINE HCL 50MG TABLET GT SCH ×3 (05:48→21:52)
[2018-09-10] MEDS: MEROPENEM 1000MG in NORMAL SALINE 100ML IV SCH ×2 (05:49→17:04)
[2018-09-10] MEDS: BLOOD SUGAR DIAGNOSTIC STRIP TEST SCH ×4 (05:51→17:23)
[2018-09-10] MEDS: POLYVINYL ALCOHOL OPHTH DROPS 15ML BOTHEYE SCH ×3 (05:51→17:06)
[2018-09-10] MEDS: INSULIN LISPRO 100 UNITS/ML SUBCUT SCH ×4 (06:00→17:23)
[2018-09-10 08:01] LABS: BASOPHILS % 0.1 % (0.0-2.0); EOSINOPHILS % 0.7 % (0.0-5.0); HEMOGLOBIN. 8.1 g/dL (14.0-18.0); LYMPHOCYTES % 11.1 % (20.0-50.0); MEAN CORPUSCULAR HEMOGLOBIN 25.9 pg (28.0-32.0); MEAN CORPUSCULAR VOLUME 86.6 fL (80.0-94.0); MEAN PLATELET VOLUME 9.3 fl (7.4-10.4); MONOCYTES % 4.1 % (2.0-8.0); PLATELET 315 x1000/uL (130-400); RED BLOOD CELL COUNT 3.12 mill/uL (4.7-6.1); RED CELL DISTRIBUTION WIDTH 18.7 % (11.6-14.6)
[2018-09-10] MEDS: ASCORBIC ACID 500 MG TABLET GT SCH (09:18)
[2018-09-10] MEDS: ZINC SULFATE 220 MG ( 50 ) CAPSULE GT SCH (09:18)
[2018-09-10] MEDS: VENLAFAXINE HCL 37.5MG TABLET GT SCH (09:18)
[2018-09-10] MEDS: ASPIRIN 81MG TABLET GT SCH (09:18)
[2018-09-10] MEDS: FERROUS SULFATE 300MG/5ML UDC GT SCH (09:18)
[2018-09-10 10:31] LABS: CHLORIDE 119 mEq/L (98-107)
[2018-09-10] MEDS: ATORVASTATIN CALCIUM 20MG TABLET GT SCH (21:51)
[2018-09-11] VITALS (11 sets, daily range): BP systolic 111–132; BP diastolic 60–74
[2018-09-11] MEDS: POLYVINYL ALCOHOL OPHTH DROPS 15ML BOTHEYE SCH ×4 (00:05→17:20)
[2018-09-11] MEDS: METRONIDAZOLE 500 MG PREMIX 100 ML IV SCH ×3 (02:41→17:19)
[2018-09-11] MEDS: MEROPENEM 1000MG in NORMAL SALINE 100ML IV SCH ×2 (05:27→18:47)
[2018-09-11] MEDS: INSULIN LISPRO 100 UNITS/ML SUBCUT SCH ×4 (06:00→18:00)
[2018-09-11] MEDS: HYDRALAZINE HCL 50MG TABLET GT SCH ×3 (06:41→21:59)
[2018-09-11] MEDS: BLOOD SUGAR DIAGNOSTIC STRIP TEST SCH ×4 (06:41→17:19)
[2018-09-11 07:08] LABS: BASOPHILS % 0.1 % (0.0-2.0); EOSINOPHILS % 0.7 % (0.0-5.0); HEMATOCRIT. 29.9 % (42.0-52.0); LYMPHOCYTES % 13.3 % (20.0-50.0); MEAN CORPUSCULAR HEMOGLOBIN 26.1 pg (28.0-32.0); MEAN CORPUSCULAR VOLUME 86.6 fL (80.0-94.0); MEAN PLATELET VOLUME 9.4 fl (7.4-10.4); MONOCYTES % 4.4 % (2.0-8.0); NEUTROPHILS % 81.5 % (40.0-76.0); PLATELET 319 x1000/uL (130-400); RED BLOOD CELL COUNT 3.46 mill/uL (4.7-6.1)
[2018-09-11 07:18] LABS: CHLORIDE 115 mEq/L (98-107)
[2018-09-11] MEDS: IPRATROPIUM/ALBUTEROL 0.5-3(2.5)MG/3ML NEB HHN SCH ×3 (08:20→21:22)
[2018-09-11 09:11] LABS: COMPLEMENT C3 269 mg/dL (82-167)
[2018-09-11] MEDS: VENLAFAXINE HCL 37.5MG TABLET GT SCH (09:13)
[2018-09-11] MEDS: ZINC SULFATE 220 MG ( 50 ) CAPSULE GT SCH (09:14)
[2018-09-11] MEDS: ASCORBIC ACID 500 MG TABLET GT SCH (09:14)
[2018-09-11] MEDS: FERROUS SULFATE 300MG/5ML UDC GT SCH (09:14)
[2018-09-11] MEDS: ASPIRIN 81MG TABLET GT SCH (09:14)
[2018-09-11] MEDS: CEFTRIAXONE 1 G PREMIX 50 ML IV SCH (14:56)
[2018-09-11] MEDS: ATORVASTATIN CALCIUM 20MG TABLET GT SCH (21:59)
[2018-09-12] VITALS (12 sets, daily range): BP systolic 108–133; BP diastolic 63–81
[2018-09-12] MEDS: METRONIDAZOLE 500 MG PREMIX 100 ML IV SCH ×3 (02:01→17:28)
[2018-09-12] MEDS: POLYVINYL ALCOHOL OPHTH DROPS 15ML BOTHEYE SCH ×4 (02:02→17:29)
[2018-09-12] MEDS: DEXTROSE 5% WATER 1,000 ML IV SCH ×2 (03:53→21:27)
[2018-09-12] MEDS: IPRATROPIUM/ALBUTEROL 0.5-3(2.5)MG/3ML NEB HHN SCH ×4 (04:06→21:53)
[2018-09-12 04:13] LABS: ANTI-NUCLEAR ANTIBODIES DIRECT Negative (Negative)
[2018-09-12] MEDS: MEROPENEM 1000MG in NORMAL SALINE 100ML IV SCH ×2 (05:54→17:28)
[2018-09-12] MEDS: HYDRALAZINE HCL 50MG TABLET GT SCH ×3 (06:00→21:27)
[2018-09-12] MEDS: INSULIN LISPRO 100 UNITS/ML SUBCUT SCH ×4 (06:00→17:16)
[2018-09-12] MEDS: BLOOD SUGAR DIAGNOSTIC STRIP TEST SCH ×4 (06:00→17:16)
[2018-09-12 07:16] LABS: BASOPHILS % 0.2 % (0.0-2.0); EOSINOPHILS % 0.8 % (0.0-5.0); HEMATOCRIT. 29.5 % (42.0-52.0); HEMOGLOBIN. 9.1 g/dL (14.0-18.0); LYMPHOCYTES % 17.8 % (20.0-50.0); MEAN CORPUSCULAR HEMOGLOBIN 26.4 pg (28.0-32.0); MEAN CORPUSCULAR VOLUME 85.8 fL (80.0-94.0); MEAN PLATELET VOLUME 9.7 fl (7.4-10.4); MONOCYTES % 3.8 % (2.0-8.0); NEUTROPHILS % 77.4 % (40.0-76.0); PLATELET 306 x1000/uL (130-400); RED BLOOD CELL COUNT 3.43 mill/uL (4.7-6.1); RED CELL DISTRIBUTION WIDTH 18.4 % (11.6-14.6)
[2018-09-12 07:39] LABS: CHLORIDE 114 mEq/L (98-107)
[2018-09-12] MEDS: ASCORBIC ACID 500 MG TABLET GT SCH (09:09)
[2018-09-12] MEDS: VENLAFAXINE HCL 37.5MG TABLET GT SCH (09:09)
[2018-09-12] MEDS: ZINC SULFATE 220 MG ( 50 ) CAPSULE GT SCH (09:09)
[2018-09-12] MEDS: FERROUS SULFATE 300MG/5ML UDC GT SCH (09:09)
[2018-09-12] MEDS: ASPIRIN 81MG TABLET GT SCH (09:09)
[2018-09-12] MEDS: CEFTRIAXONE 1 G PREMIX 50 ML IV SCH (14:07)
[2018-09-12] MEDS: ATORVASTATIN CALCIUM 20MG TABLET GT SCH (21:26)
[2018-09-13] VITALS (12 sets, daily range): BP systolic 117–152; BP diastolic 67–86
[2018-09-13] MEDS: POLYVINYL ALCOHOL OPHTH DROPS 15ML BOTHEYE SCH ×4 (01:46→17:24)
[2018-09-13] MEDS: METRONIDAZOLE 500 MG PREMIX 100 ML IV SCH ×3 (01:48→17:16)
[2018-09-13] MEDS: IPRATROPIUM/ALBUTEROL 0.5-3(2.5)MG/3ML NEB HHN SCH ×4 (02:25→21:26)
[2018-09-13] MEDS: INSULIN LISPRO 100 UNITS/ML SUBCUT SCH ×4 (06:00→17:25)
[2018-09-13] MEDS: HYDRALAZINE HCL 50MG TABLET GT SCH ×3 (06:00→21:08)
[2018-09-13] MEDS: BLOOD SUGAR DIAGNOSTIC STRIP TEST SCH ×4 (06:18→17:24)
[2018-09-13] MEDS: MEROPENEM 1000MG in NORMAL SALINE 100ML IV SCH ×2 (06:44→17:16)
[2018-09-13] MEDS: FERROUS SULFATE 300MG/5ML UDC GT SCH (08:52)
[2018-09-13] MEDS: ASCORBIC ACID 500 MG TABLET GT SCH (08:53)
[2018-09-13] MEDS: ASPIRIN 81MG TABLET GT SCH (08:53)
[2018-09-13] MEDS: ZINC SULFATE 220 MG ( 50 ) CAPSULE GT SCH (08:53)
[2018-09-13] MEDS: VENLAFAXINE HCL 37.5MG TABLET GT SCH (08:53)
[2018-09-13] MEDS: CEFTRIAXONE 1 G PREMIX 50 ML IV SCH (13:52)
[2018-09-13 18:07] LABS: CHLORIDE 111 mEq/L (98-107)
[2018-09-13] MEDS: ATORVASTATIN CALCIUM 20MG TABLET GT SCH (20:28)
[2018-09-14] VITALS (10 sets, daily range): BP systolic 95–130; BP diastolic 59–77
[2018-09-14] MEDS: POLYVINYL ALCOHOL OPHTH DROPS 15ML BOTHEYE SCH ×4 (03:32→17:43)
[2018-09-14] MEDS: BLOOD SUGAR DIAGNOSTIC STRIP TEST SCH ×4 (05:15→17:41)
[2018-09-14] MEDS: INSULIN LISPRO 100 UNITS/ML SUBCUT SCH ×4 (05:15→17:42)
[2018-09-14] MEDS: HYDRALAZINE HCL 50MG TABLET GT SCH ×2 (05:15→14:21)
[2018-09-14] MEDS: MEROPENEM 1000MG in NORMAL SALINE 100ML IV SCH ×2 (05:29→17:43)
[2018-09-14] MEDS: FERROUS SULFATE 300MG/5ML UDC GT SCH (08:02)
[2018-09-14] MEDS: VENLAFAXINE HCL 37.5MG TABLET GT SCH (08:02)
[2018-09-14] MEDS: ZINC SULFATE 220 MG ( 50 ) CAPSULE GT SCH (08:03)
[2018-09-14] MEDS: ASPIRIN 81MG TABLET GT SCH (08:03)
[2018-09-14] MEDS: ASCORBIC ACID 500 MG TABLET GT SCH (08:03)
[2018-09-14] MEDS: IPRATROPIUM/ALBUTEROL 0.5-3(2.5)MG/3ML NEB HHN SCH ×2 (08:40→13:48)
[2018-09-14 09:54] LABS: BASOPHILS % 0.3 % (0.0-2.0); EOSINOPHILS % 0.9 % (0.0-5.0); HEMATOCRIT. 31.8 % (42.0-52.0); HEMOGLOBIN. 9.6 g/dL (14.0-18.0); LYMPHOCYTES % 13.9 % (20.0-50.0); MEAN CORPUSCULAR VOLUME 85.8 fL (80.0-94.0); MEAN PLATELET VOLUME 9.8 fl (7.4-10.4); NEUTROPHILS % 78.9 % (40.0-76.0); PLATELET 313 x1000/uL (130-400); RED BLOOD CELL COUNT 3.71 mill/uL (4.7-6.1); RED CELL DISTRIBUTION WIDTH 18.8 % (11.6-14.6)
[2018-09-14 12:01] LABS: CHLORIDE 109 mEq/L (98-107)
[2018-09-14] MEDS: CEFTRIAXONE 1 G PREMIX 50 ML IV SCH (14:21)
[2018-09-14 19:58] LABS: SODIUM URINE RANDOM 44 mEq/L
[2018-09-14 20:02] LABS: UREA NITROGEN URINE RANDOM 298 mg/dL
[2018-09-14] MEDS ORDERED: ACETYLCYSTEINE 100MG/ML 10% VIAL 4ML INH SCH (22:00)
== END 2018-09-14 19:25 | DRG 853 ==
LOC: 5EST 17:00
PROVIDERS: ADMIT Internal Medicine; ATTEND Internal Medicine
PROC: 0KB00ZZ Excision of Head Muscle, Open Approach (ICD-10-PCS; principal; 2018-09-10)
DX: A41.9 Sepsis, unspecified organism (principal); L89.814 Pressure ulcer of head, stage 4; G93.41 Metabolic encephalopathy; J69.0 Pneumonitis due to inhalation of food and vomit; N17.0 Acute kidney failure with tubular necrosis; J96.20 Acute and chronic respiratory failure, unspecified whether with hypoxia or hypercapnia; N39.0 Urinary tract infection, site not specified; I69.354 Hemiplegia and hemiparesis following cerebral infarction affecting left non-dominant side; E87.0 Hyperosmolality and hypernatremia; E46 Unspecified protein-calorie malnutrition; E11.51 Type 2 diabetes mellitus with diabetic peripheral angiopathy without gangrene; E86.0 Dehydration; E87.5 Hyperkalemia; H54.62 Unqualified visual loss, left eye, normal vision right eye; H66.91 Otitis media, unspecified, right ear; E78.5 Hyperlipidemia, unspecified; Z16.12 Extended spectrum beta lactamase (ESBL) resistance; I12.9 Hypertensive chronic kidney disease with stage 1 through stage 4 chronic kidney disease, or unspecified chronic kidney disease; B96.1 Klebsiella pneumoniae [K. pneumoniae] as the cause of diseases classified elsewhere; J44.9 Chronic obstructive pulmonary disease, unspecified; N18.9 Chronic kidney disease, unspecified; L89.159 Pressure ulcer of sacral region, unspecified stage; L89.329 Pressure ulcer of left buttock, unspecified stage; D64.9 Anemia, unspecified; E11.22 Type 2 diabetes mellitus with diabetic chronic kidney disease; R13.10 Dysphagia, unspecified; I69.320 Aphasia following cerebral infarction; R31.0 Gross hematuria; Z93.0 Tracheostomy status; Z93.1 Gastrostomy status; Z89.612 Acquired absence of left leg above knee; Z89.611 Acquired absence of right leg above knee; Z87.891 Personal history of nicotine dependence; Z68.24 Body mass index [BMI] 24.0-24.9, adult; Z74.01 Bed confinement status; Z79.899 Other long term (current) drug therapy; Z79.82 Long term (current) use of aspirin
CPT/HCPCS: 36415; 71045; 76770; 80048; 80061; 81003; 82550; 82553; 82570; 82962; 83036; 83880; 83930; 83935; 84134; 84156; 84295; 84300; 84439; 84443; 84484; 84540; 85379; 86038; 86160; 87070; 87075; 87077; 87186; 92610; 93005; 93306; 93970; 94640; 97162; 97166; 97530; C1893; J0696; J1815; J1956; J2185; J2920; J2930; J3490; J7050; J7070; J7620; A4315

== ENCOUNTER 2023-03-21 09:04 | Inpatient (IN) | payer MEDICARE, MEDICAID ==
[~2023-03-21] VITALS: Ht 180.3 cm; Wt 68.5 kg
[~2023-03-21 09:04] MED LIST changes: +ATOR10TA69 PO; +HYDR100T26 MT
[2023-03-21] MEDS ORDERED: PANTOPRAZOLE 80 MG in SODIUM CHLORIDE 0.9% 100 ML IV STA (09:53)
[2023-03-21 10:37] LABS: BASOPHILS % 0.2 % (0.0-2.0); HEMATOCRIT. 48.3 % (42.0-52.0); HEMOGLOBIN. 15.4 g/dL (14.0-18.0); LYMPHOCYTES % 8.2 % (20.0-50.0); MEAN CORPUSCULAR HEMOGLOBIN 26.2 pg (28.0-32.0); MEAN PLATELET VOLUME 10.3 fl (7.4-10.4); NEUTROPHILS % 88.6 % (40.0-76.0); PLATELET 202 x1000/uL (130-400); RED CELL DISTRIBUTION WIDTH 18.5 % (11.6-14.6)
[2023-03-21 10:38] LABS: CHLORIDE 106 mEq/L (98-107)
[2023-03-21 10:45] LABS: INR 1.1; PARTIAL THROMBOPLASTIN TIME 29.3 sec (23.4-31.0); PROTHROMBIN TIME 11.4 sec (9.6-11.0)
[2023-03-21] MEDS ORDERED: SODIUM CHLORIDE 0.9% 1,000 ML IV ONE ×2 (12:30→13:15)
[2023-03-21] MEDS ORDERED: ONDA4TAB11 PO (13:09)
[2023-03-21] MEDS ORDERED: TRAM50TA3 MT (13:09)
[2023-03-21 20:00] VITALS: BP 116/72
[2023-03-21 20:41] VITALS: BP 149/70
[2023-03-21] MEDS: SODIUM CHLORIDE 0.9% 1,000 ML IV SCH (21:23)
[2023-03-21] MEDS: PANTOPRAZOLE SODIUM 40 MG/VIAL IV SCH (21:25)
[2023-03-21] MEDS: PIPERACILLIN/TAZOBACTAM 3.375 G in DEXTROSE 5% WATER 50 ML IV SCH (21:26)
[2023-03-22] VITALS: BP 125/81
[2023-03-22 00:37] LABS: BASOPHILS % 0.3 % (0.0-2.0); EOSINOPHILS % 0.2 % (0.0-5.0); HEMOGLOBIN. 13.9 g/dL (14.0-18.0); MEAN CORPUSCULAR HEMOGLOBIN 26.1 pg (28.0-32.0); MEAN CORPUSCULAR VOLUME 82.6 fL (80.0-94.0); MEAN PLATELET VOLUME 9.8 fl (7.4-10.4); MONOCYTES % 8.4 % (2.0-8.0); NEUTROPHILS % 75.1 % (40.0-76.0); PLATELET 180 x1000/uL (130-400); RED BLOOD CELL COUNT 5.32 mill/uL (4.7-6.1); RED CELL DISTRIBUTION WIDTH 18.8 % (11.6-14.6)
[2023-03-22] MEDS: PIPERACILLIN/TAZOBACTAM 3.375 G in DEXTROSE 5% WATER 50 ML IV SCH ×3 (05:11→22:30)
[2023-03-22 06:00] VITALS: BP 136/84
[2023-03-22 07:34] LABS: BASOPHILS % 0.2 % (0.0-2.0); EOSINOPHILS % 0.5 % (0.0-5.0); HEMATOCRIT. 45.6 % (42.0-52.0); HEMOGLOBIN. 14.4 g/dL (14.0-18.0); LYMPHOCYTES % 16.9 % (20.0-50.0); MEAN CORPUSCULAR HEMOGLOBIN 26.2 pg (28.0-32.0); MEAN PLATELET VOLUME 10.2 fl (7.4-10.4); MONOCYTES % 12.9 % (2.0-8.0); NEUTROPHILS % 69.5 % (40.0-76.0); PLATELET 162 x1000/uL (130-400); RED BLOOD CELL COUNT 5.49 mill/uL (4.7-6.1); RED CELL DISTRIBUTION WIDTH 18.7 % (11.6-14.6)
[2023-03-22 07:41] LABS: CHLORIDE 112 mEq/L (98-107)
[2023-03-22 08:00] VITALS: BP 124/82
[2023-03-22] MEDS: SODIUM CHLORIDE 0.9% 1,000 ML IV SCH (11:47)
[2023-03-22] MEDS: PANTOPRAZOLE SODIUM 40 MG/VIAL IV SCH ×2 (11:47→22:30)
[2023-03-22 12:00] VITALS: BP 134/80
[2023-03-22] MEDS ORDERED: CLONIDINE 0.1MG TABLET PO PRN (13:15)
[2023-03-22] MEDS ORDERED: DOCUSATE SODIUM 100MG CAPSULE PO PRN (13:15)
[2023-03-22] MEDS ORDERED: ONDANSETRON HCL 4MG/2ML INJ IV PRN (13:15)
[2023-03-22] MEDS ORDERED: ACETAMINOPHEN 325MG TABLET PO PRN ×2 (13:15)
[2023-03-22] MEDS ORDERED: IPRATROPIUM/ALBUTEROL 0.5-3(2.5)MG/3ML NEB HHN PRN (13:15)
[2023-03-22] MEDS ORDERED: DEXTROSE 50% WATER 50ML SYRINGE IV PRN (14:30)
[2023-03-22] MEDS: BLOOD SUGAR DIAGNOSTIC STRIP TEST SCH ×2 (17:10→22:29)
[2023-03-22] MEDS: INSULIN LISPRO 100 UNITS/ML SUBCUT SCH ×2 (17:40→22:29)
[2023-03-22] MEDS: DEXT 5%/0.45% NACL 1000ML 1,000 ML IV SCH (18:57)
[2023-03-22 20:00] VITALS: BP 111/64
[2023-03-23 04:00] VITALS: BP 131/62
[2023-03-23] MEDS: DEXT 5%/0.45% NACL 1000ML 1,000 ML IV SCH ×2 (04:42→15:02)
[2023-03-23] MEDS: BLOOD SUGAR DIAGNOSTIC STRIP TEST SCH (06:55)
[2023-03-23] MEDS: INSULIN LISPRO 100 UNITS/ML SUBCUT SCH (06:55)
[2023-03-23] MEDS: PIPERACILLIN/TAZOBACTAM 3.375 G in DEXTROSE 5% WATER 50 ML IV SCH ×3 (06:59→21:32)
[2023-03-23 08:00] VITALS: BP 151/64
[2023-03-23] MEDS: PANTOPRAZOLE SODIUM 40 MG/VIAL IV SCH ×2 (08:46→21:31)
[2023-03-23 09:27] LABS: BASOPHILS % 0.4 % (0.0-2.0); EOSINOPHILS % 1.4 % (0.0-5.0); HEMATOCRIT. 40.5 % (42.0-52.0); HEMOGLOBIN. 12.9 g/dL (14.0-18.0); LYMPHOCYTES % 19.7 % (20.0-50.0); MEAN CORPUSCULAR HEMOGLOBIN 26.4 pg (28.0-32.0); MEAN CORPUSCULAR VOLUME 82.6 fL (80.0-94.0); MEAN PLATELET VOLUME 10.4 fl (7.4-10.4); MONOCYTES % 9.8 % (2.0-8.0); NEUTROPHILS % 68.7 % (40.0-76.0); PLATELET 174 x1000/uL (130-400); RED CELL DISTRIBUTION WIDTH 18.8 % (11.6-14.6)
[2023-03-23 09:36] LABS: CHLORIDE 116 mEq/L (98-107)
[2023-03-23] MEDS ORDERED: DIATR MEGLU/DIATRIZOATE SOLN 30ML PO NR (10:00)
[2023-03-23 12:00] VITALS: BP 139/68
[2023-03-23] MEDS ORDERED: IOHEXOL-300 100 ML BOTTLE ONE (15:17)
[2023-03-23 16:00] VITALS: BP 141/63
[2023-03-23] MEDS ORDERED: POTASSIUM CHLORIDE 20MEQ/PACKET PO NR (16:30)
[2023-03-23 20:00] VITALS: BP 143/82
[2023-03-24] VITALS: BP 139/80
[2023-03-24 04:00] VITALS: BP 144/68
[2023-03-24] MEDS: PIPERACILLIN/TAZOBACTAM 3.375 G in DEXTROSE 5% WATER 50 ML IV SCH (05:18)
[2023-03-24] MEDS: DEXT 5%/0.45% NACL 1000ML 1,000 ML IV SCH (05:19)
[2023-03-24 05:55] LABS: BASOPHILS % 0.2 % (0.0-2.0); EOSINOPHILS % 1.4 % (0.0-5.0); HEMATOCRIT. 39.5 % (42.0-52.0); HEMOGLOBIN. 12.7 g/dL (14.0-18.0); MEAN CORPUSCULAR HEMOGLOBIN 26.5 pg (28.0-32.0); MEAN CORPUSCULAR VOLUME 82.4 fL (80.0-94.0); MEAN PLATELET VOLUME 10.2 fl (7.4-10.4); MONOCYTES % 7.7 % (2.0-8.0); NEUTROPHILS % 75.7 % (40.0-76.0); PLATELET 172 x1000/uL (130-400); RED BLOOD CELL COUNT 4.79 mill/uL (4.7-6.1); RED CELL DISTRIBUTION WIDTH 18.2 % (11.6-14.6)
[2023-03-24 06:28] LABS: CHLORIDE 115 mEq/L (98-107)
[2023-03-24 08:00] VITALS: BP 176/80
[2023-03-24] MEDS: PANTOPRAZOLE SODIUM 40 MG/VIAL IV SCH ×2 (09:07→21:34)
[2023-03-24 12:00] VITALS: BP 127/52
[2023-03-24] MEDS: LEVOFLOXACIN 500MG PREMIX 100 ML IV SCH (14:55)
[2023-03-24 16:00] VITALS: BP 119/54
[2023-03-24 20:00] VITALS: BP 128/58
[2023-03-25] VITALS: BP 132/58
[2023-03-25 04:00] VITALS: BP 143/64
[2023-03-25 06:42] LABS: BASOPHILS % 0.2 % (0.0-2.0); EOSINOPHILS % 1.4 % (0.0-5.0); HEMATOCRIT. 39.6 % (42.0-52.0); HEMOGLOBIN. 12.6 g/dL (14.0-18.0); LYMPHOCYTES % 22.1 % (20.0-50.0); MEAN CORPUSCULAR VOLUME 82.1 fL (80.0-94.0); MONOCYTES % 6.5 % (2.0-8.0); NEUTROPHILS % 69.8 % (40.0-76.0); PLATELET 167 x1000/uL (130-400); RED BLOOD CELL COUNT 4.83 mill/uL (4.7-6.1); RED CELL DISTRIBUTION WIDTH 18.3 % (11.6-14.6)
[2023-03-25 07:17] LABS: CHLORIDE 113 mEq/L (98-107)
[2023-03-25 08:00] VITALS: BP 130/65
[2023-03-25] MEDS: PANTOPRAZOLE SODIUM 40 MG/VIAL IV SCH (09:09)
[2023-03-25 12:00] VITALS: BP 138/68
[2023-03-25] MEDS: LEVOFLOXACIN 500MG PREMIX 100 ML IV SCH (13:45)
[2023-03-25 15:12] VITALS: BP 138/65
[2023-03-25 16:00] VITALS: BP 136/70
== END 2023-03-25 16:50 | DRG 377 ==
LOC: ER 09:04 → 8WST 15:19
PROVIDERS: ADMIT Internal Medicine; ATTEND Internal Medicine
DX: K92.0 Hematemesis (principal); J18.9 Pneumonia, unspecified organism; J95.09 Other tracheostomy complication; K22.10 Ulcer of esophagus without bleeding; K52.9 Noninfective gastroenteritis and colitis, unspecified; E86.0 Dehydration; E11.22 Type 2 diabetes mellitus with diabetic chronic kidney disease; E11.51 Type 2 diabetes mellitus with diabetic peripheral angiopathy without gangrene; N18.9 Chronic kidney disease, unspecified; I12.9 Hypertensive chronic kidney disease with stage 1 through stage 4 chronic kidney disease, or unspecified chronic kidney disease; D63.1 Anemia in chronic kidney disease; R50.9 Fever, unspecified; J44.9 Chronic obstructive pulmonary disease, unspecified; K29.70 Gastritis, unspecified, without bleeding; K44.9 Diaphragmatic hernia without obstruction or gangrene; R13.10 Dysphagia, unspecified; K76.0 Fatty (change of) liver, not elsewhere classified; Z79.899 Other long term (current) drug therapy; K62.89 Other specified diseases of anus and rectum; Z79.82 Long term (current) use of aspirin; Z87.891 Personal history of nicotine dependence; Z86.73 Personal history of transient ischemic attack (TIA), and cerebral infarction without residual deficits; Z89.611 Acquired absence of right leg above knee
CPT/HCPCS: 36415; 71045; 74018; 74177; 76700; 80048; 80053; 82962; 83036; 84484; 85025; 85044; 86850; 86900; 92610; 99285; C9113; J1956; J2543; J7030; J7050; J7060; Q9963; Q9967